=== PATIENT | male | born 1940 | race Caucasian/White ===

== ENCOUNTER 2018-02-18 08:51 | Day surgery (SDC) | payer MEDICARE ==
[~2018-02-18] VITALS: Ht 185.4 cm; Wt 126.4 kg
--- NOTE | ~2018-02-18 | OP ---
PATIENT NAME: MURTAZA REYES JR MEDICAL RECORD: [id number] :40 [facility] DATE: SURGEON: ALEJANDRO SHARP DO DATE OF OPERATION: 02/18/2018 PROCEDURE: Colonoscopy with biopsy. INDICATIONS FOR PROCEDURE: Diverticular disease, periumbilical abdominal pain, chronic constipation. SCOPE: Dhir [employer] video pediatric colonoscope. MEDICATIONS: Propofol 270 mg IV per anesthesia. WITHDRAWAL TIME: 8 minutes. ESTIMATED BLOOD LOSS: Minimal. COMPLICATIONS: None. FINDINGS: Informed consent was given. The patient was made comfortable with the above medication. After reaching an adequate level of sedation by slow IV push, the patient was placed on his left side. A digital rectal examination was performed and revealed an enlarged and firm prostate consistent with prostatic hyperplasia. The endoscope was advanced under direct visualization through the rectum to the cecum. The cecum was confirmed by presence of the appendiceal orifice and ileocecal valve. The endoscope is slowly withdrawn. Mucosa was carefully examined. The prep quality was fair. There was extensive, severe, pandiverticulosis visualized on today's examination. There was no evidence of active diverticulitis. There were no polyps seen on today examination. There was a single area in the ascending colon, which appeared to be a lipoma, but did not have a typical yellow discoloration. The area measured approximately 1.4 cm in size. The tissue was probed with a forceps with indentation noted. A single cold forceps biopsy was taken to confirm that there was no adenomatous tissue present. Retroflexion was performed in the rectum with visualization of grade I internal hemorrhoids without active bleeding. The endoscope was then unretroflexed and withdrawn from the patient. The patient tolerated the procedure well and there were no complications. IMPRESSION: 1. Severe pandiverticulosis without diverticulitis. 2. Ascending colon submucosal lesion that appeared to be a lipoma. A single cold forceps biopsy was taken of the overlying tissue to rule out adenomatous tissue. 3. Grade I internal hemorrhoids without active bleeding. PLAN AND RECOMMENDATIONS: 1. Discharge home when recovery parameters are met. 2. Follow up biopsy specimen results. 3. Continue current medications. 4. High fiber diet. 5. Regarding the patient's constipation, I would recommend continuing MiraLax 1 cap daily and supplementing diet with 1-2 tablespoons of psyllium husk fiber daily. 6. No further colonoscopies based on the patient's age and lack of polyps seen OPERATIVE REPORT [id number] MURTAZA REYES JR on today's examination. TRANSINT:[id number] Voice Confirmation ID: [id number] DOCUMENT ID: [id number] ALEJANDRO SHARP DO at 0934 CC: [id number] DICTATION DATE: 02/18/18 1126 TRUCK FARMER: 02/18/18 1242 [facility] 02/18/18 [id number] [place] [address]
[~2018-02-18 08:51] MED LIST: ALEVE220 MG PO; AUGMENTIN 875-11 TAB PO; BAYER CHEWABLE81 MG PO; CARDURA2 MG PO; FISH OIL 1,0001 CA1 PO; HYDROCHLOROTHIA25 MG PO; LASIX40 MG PO; LIPITOR40 MG PO; NORCO 5/325 TAB1 TA1 PO; PERIDEX480 ML MM; PRINIVIL20 MG PO
[2018-02-18] MEDS ORDERED: BAYER CHEWABLE81 MG PO (09:48)
[2018-02-18] MEDS ORDERED: COREG12.5 MG PO (09:49)
[2018-02-18] MEDS ORDERED: KLOR-CON 88 MEQ PO (09:50)
[2018-02-18 09:59] VITALS: Ht 185.4 cm; Wt 126.4 kg
[2018-02-18 10:27] LABS: HEMATOCRIT 43.6 % (42.0-54.0); HEMOGLOBIN 14.6 g/dL (13.5-17.5); MCH 29.7 pg (26.0-34.0); MCHC 33.5 g/dL (31.0-37.0); MCV 88.6 fL (80.0-100.0); MEAN PLATELET VOLUME 9.6 fL (7.4-10.4); RBC 4.92 10x6/uL (4.20-6.10); RDW 12.6 % (11.5-14.5); WBC 5.1 10x3/uL (4.8-10.8)
== END 2018-02-18 12:20 | disposition home or self-care (01) ==
LOC: D.OPS 08:51
PROVIDERS: Anesthesiology
DX: K59.09 Other constipation (principal); I25.10 Atherosclerotic heart disease of native coronary artery without angina pectoris; I10 Essential (primary) hypertension; I50.9 Heart failure, unspecified; E66.9 Obesity, unspecified; K63.9 Disease of intestine, unspecified; K64.0 First degree hemorrhoids; Z01.812 Encounter for preprocedural laboratory examination

== ENCOUNTER 2018-04-30 17:35 | Inpatient (IN) | payer MEDICARE ==
[~2018-04-30] VITALS: Ht 185.4 cm; Wt 125.6 kg
--- NOTE | ~2018-04-30 | CN ---
PATIENT NAME:MURTAZA AVILA JR MEDICAL RECORD: [id number] : 40 LOCATION:[id number] ADMIT DATE: 04/30/18 ACCOUNT: [id number] CONSULTING PHYSICIAN: TOMI MERCEDES MD REFERRING PHYSICIAN: SHALONDA MELGAR MD DATE OF CONSULTATION: 04/30/2018 SURGERY CONSULTATION CHIEF COMPLAINT: Hernia. HISTORY OF PRESENT ILLNESS: Mr. Avila is a 77-year-old white male who is seen by Dr. Wayne this morning for a tender bulge in the right groin. He says it has been present for about a day, has gotten more tender. When he was seen by Dr. Wayne, attempts were made to reduce, it was felt to be an inguinal hernia, but they were unsuccessful secondary to the pain. Dr. Wayne called me at that point and scheduled to have the patient transferred directly to the hospital for further evaluation and possible surgery. The patient has been resting in the ER waiting room for a floor bed to come open. When I found him, he was sitting in the corner of the ER and at that point I took him back to one of the ER rooms and did an evaluation. He says he denies any nausea or vomiting, but that the pain has been fairly intense in the right groin, especially with manipulation. He has never had a hernia before and has never noticed a bulge in the region. He denies any history of previous hernia repairs. He does have extensive history of coronary artery disease, undergoing PTCA with stenting and also having a CABG performed. He reports taking a baby aspirin a day, but according to Dr. Wayne's notes he is also on Plavix. PAST MEDICAL HISTORY: 1. Coronary artery disease. 2. Hypertension. 3. Sleep apnea. 4. Peripheral vascular disease. PAST SURGICAL HISTORY: 1. Left total knee replacement. 2. CABG. 3. PTCA with stenting. 4. Open cholecystectomy. ALLERGIES: No known drug allergies. MEDICATIONS: Hydrochlorothiazide 25 mg daily, Robaxin 500 mg t.i.d., lisinopril 20 mg b.i.d., Lasix 40 mg daily, Lipitor 40 mg at bedtime, aspirin 81 mg daily, carvedilol 12.5 mg b.i.d., Klor-Con 8 mEq daily, Aleve 220 mg every 12 hours p.r.n. and [place] 3 fish oil 1000 mg daily, and possibly Plavix 75 mg daily. FAMILY HISTORY: Cardiovascular disease and diabetes. SOCIAL HISTORY: He is a former tobacco user and former alcohol user with about a [id number] history. REVIEW OF SYSTEMS: GENERAL: He denies any fevers, chills, fatigue, but he does have weakness. CARDIOVASCULAR: He denies chest pain, palpitations or shortness of breath, but CONSULT REPORT [id number] MURTAZA AVILA JR he does have leg edema. NEUROLOGIC: Denies headache, seizure, strokes, or numbness. No mental status changes. INFECTIOUS DISEASE: No fevers or chills. GASTROINTESTINAL: He denies nausea, vomiting, but he does have right groin pain. Denies diarrhea or constipation. GENITOURINARY: No history of kidney disease, dialysis or dysuria. HEMATOLOGIC: No bleeding or melena. ENDOCRINE: He denies thirst or sweating. PULMONARY: Denies cough, wheezing or pleurisy. MUSCULOSKELETAL: He does have some functional loss in his extremities and has some occasional pain. PHYSICAL EXAMINATION: VITAL SIGNS: He currently does not have any vital signs from our facility. GENERAL: He is an obese male in no apparent distress, but in some pain with limited gait. HEENT: Sclerae is nonicteric. HEART: Regular rate and rhythm with no murmurs. RESPIRATORY: No cough or wheezing. GASTROINTESTINAL: Soft, nontender, nondistended. He does have a right inguinal hernia, which is firm and tender with no overlying skin changes and is not reducible. There is no evidence of a left inguinal hernia. No signs of umbilical hernia. No sign of hepatosplenomegaly. EXTREMITIES: He has bilateral lower extremity edema with stockings in place. He has a healed left knee incision. NEUROLOGICAL: Alert and oriented times 3. SKIN: No rashes or lesions. No jaundice. ASSESSMENT AND PLAN: 1. Incarcerated right inguinal hernia. I made multiple attempts to reduce the hernia in the Emergency Room, which were unsuccessful, so the patient was set up for emergent surgery. The call team for the OR was called in and the patient was given Lovenox and preoperative orders for antibiotics. 2. Coronary artery disease. We will hold Plavix and aspirin. 3. Hypertension. We will continue home lisinopril postoperatively. TRANSINT:[id number] Voice Confirmation ID: [id number] DOCUMENT ID: [id number] TOMI MERCEDES MD at 0801 CC: [id number] DICTATION DATE: 05/01/18 1317 WATER TENDER: 05/01/18 1356 [facility] 05/01/18 [id number] [place] [id number]
--- NOTE | ~2018-04-30 | OP ---
PATIENT NAME: MURTAZA REYES JR MEDICAL RECORD: [id number] :40 LOCATION:[id number] ADMISSION DATE:04/30/18 SURGEON: SYLVAIN MERCEDES MD DATE OF OPERATION: 05/01/2018 PREOPERATIVE DIAGNOSES: 1. Incarcerated right inguinal hernia. 2. Coronary artery disease. 3. Hypertension. POSTOPERATIVE DIAGNOSES: 1. Incarcerated right inguinal hernia. 2. Coronary artery disease. 3. Hypertension. PROCEDURE: Right inguinal hernia repair with a large PHS mesh. SURGEON: Sylvain Mercedes MD REPORT OF PROCEDURE: The patient's right groin was prepped and draped in sterile fashion. An oblique incision was made above the inguinal ligament. Electrocautery was used to dissect through the subcutaneous tissues to the external oblique fascia. This fascia was opened up to the external ring using electrocautery. We immediately could see there was an enlarged hernia sac. This had some what appeared to be fatty contents within it. As we gently started our manipulation, these contents fell quickly into the abdominal cavity. I was eventually able to dissect down to moderate sized cord lipoma and freed up what appeared to be an indirect hernia defect. This hernia sac was kept intact and once it was freed up from the spermatic cord, it was eviscerated back into the abdominal cavity. The preperitoneal space of Retzius was opened up and a large PHS mesh was inserted. This was sutured down on all 4 sides using multiple interrupted 0 Vicryls. Any nerve tissue that was found in the area was treated with high ligation. We then irrigated out the wounds with normal saline and checked to make sure there was no sign of any active bleeding. The external oblique fascia was then closed with running 2-0 Vicryl, Aiden's was closed with interrupted 3-0 Vicryl and the skin was closed with running subcutaneous 5-0 Monocryl. A 10 mL of 0.25% Marcaine with epinephrine was infused into the surrounding tissues and the wound was dressed appropriately. COMPLICATIONS: None. CONDITION: Stable. ANESTHESIA: General endotracheal and local. BLOOD LOSS: Minimal. TRANSINT:[id number] Voice Confirmation ID: [id number] DOCUMENT ID: [id number] OPERATIVE REPORT [id number] MURTAZA REYES JR SYLVAIN MERCEDES MD at 0801 CC: LARA GUZMÁN [id number] DICTATION DATE: 05/01/18 0030 ETL ANALYST: 05/01/18 0109 [facility] 05/01/[address] [facility] [address] [id number]
--- NOTE | ~2018-04-30 | HP ---
PATIENT: MURTAZA AVILA JR MEDICAL RECORD: [id number] ACCOUNT: [id number] LOCATION:[id number] : 40 ADMISSION DATE: 04/30/18 HISTORY AND PHYSICAL EXAMINATION HISTORY: Mr. Avila is a pleasant 77-year-old white male who presents to the office this afternoon with acute onset of right inguinal pain. He was cleaning blackberry sitting at the table, when he developed sudden pain this morning. He has done some recent lifting and pulling about the house. On exam in the office, he has a palpable mass in the right inguinal area that is exquisitely tender with pain. He has felt nauseated but no vomiting. He had a bowel movement earlier today, but not since the pain started. Findings are very suspicious for an incarcerated bowel. I spoke with Dr. Kamara and the patient is going to be a direct admit for further evaluation. PAST MEDICAL HISTORY: Significant for morbid obesity, osteoarthritis, diverticular disease, coronary artery disease, hyperlipidemia, hypertension, bilateral hearing loss, sleep apnea, gout, prediabetes. PAST SURGICAL HISTORY: Previous surgeries and procedures include PTCA, cataract surgery, colonoscopy in February of 2018, cholecystectomy, left knee replacement in 2009, bypass grafting in 1994. ALLERGIES: None known. HOME MEDICATIONS: Include doxazosin half tablet at bedtime, atorvastatin 40 mg a day, ranitidine 150 twice a day, lisinopril 20 a day, clopidogrel 75 mg a day, furosemide 20 a day, Coreg 12.5 twice a day, ProAir p.r.n., stool softener, fish oil, O2 at bedtime and p.r.n., and a baby aspirin. He also takes some oovl-hej-spwypej potassium and MiraLAX. FAMILY HISTORY: Significant for cancer and diabetes. SOCIAL HISTORY: The patient is . His has dementia and he is her primary caregiver. He is a former smoker, quit in 1969. He admits to occasional alcohol use. 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 REVIEW OF SYSTEMS: He denies any fever. Denies any chest pain or shortness of breath. He is extremely hard of hearing. Pain is in the right inguinal area. Nausea. He had a bowel movement this morning prior to onset of pain. No difficulties with urinating. PHYSICAL EXAMINATION: GENERAL: He is in [id number]-si-sylblfzv distress at this time due to pain, morbidly obese, very hard of hearing. HEART: Regular without murmur, rub, or gallop. LUNGS: Clear. ABDOMEN: Soft. He has a palpable mass in the right inguinal ring, which is exquisitely tender and unable to reduce here in the office. NEUROLOGIC: Without any gross focal deficits. IMPRESSION: 1. Incarcerated right inguinal hernia, unable to reduce in the office. 2. Coronary artery disease, stable. HISTORY AND PHYSICAL [id number] MURTAZA AVILA JR 3. Morbid obesity. 4. Hard of hearing. 5. DJD. 6. Hyperlipidemia. 7. Hypertension. 8. Sleep apnea. 9. Morbid obesity. PLAN: 1. Unable to reduce here in the office. 2. Called and discussed with Dr. Kamara. 3. Admit. Instructed to remain n.p.o. IV pain medications. See orders for rest of plan. TRANSINT:[id number] Voice Confirmation ID: [id number] DOCUMENT ID: [id number] LARA GUZMÁN DO at 1133 CC: [id number] DICTATION DATE: 04/30/18 180 ENVIRONMENTAL SYSTEMS COORDINATOR: 04/30/18 1823 ADM IN [facility] [address] [id number]
[~2018-04-30 17:35] MED LIST changes: +COREG12.5 MG PO; +KLOR-CON 88 MEQ PO
[2018-04-30 22:04] LABS: BASOPHILS 0.2 % (0-2); HEMATOCRIT 41.5 % (42.0-54.0); HEMOGLOBIN 13.9 g/dL (13.5-17.5); IMMATURE GRANULOCYTES 0.1 % (0-5); LYMPHOCYTES 19.9 % (15-50); MCH 29.9 pg (26.0-34.0); MCHC 33.5 g/dL (31.0-37.0); MCV 89.2 fL (80.0-100.0); MEAN PLATELET VOLUME 9.3 fL (7.4-10.4); MONOCYTES 9.4 % (2-11); NEUTROPHILS 67.4 % (40-80); PLATELET COUNT 151 10x3/uL (130-400); RBC 4.65 10x6/uL (4.20-6.10); RDW 13.4 % (11.5-14.5); WBC 8.4 10x3/uL (4.8-10.8)
[2018-04-30] MEDS ORDERED: ROBAXIN500 MG PO (22:25)
[2018-04-30 22:55] LABS: ALBUMIN 3.7 g/dL (3.4-5.0); ANION GAP 7.2 mmol/L (8-16); BILIRUBIN - TOTAL 1.52 mg/dL (0.2-1.3); CALCIUM 8.6 mg/dL (8.5-10.1); CARBON DIOXIDE 30.8 mmol/L (21.0-32.0); CREATININE - SERUM 1.2 mg/dL (0.6-1.3); PROTEIN - SERUM 7.2 g/dL (6.4-8.2)
[2018-05-01] VITALS (12 sets, daily range): BP systolic 123–170; BP diastolic 61–93; Ht 185.4 cm; Wt 125.6 kg
[2018-05-01 10:45] LABS: ALBUMIN 3.6 g/dL (3.4-5.0); ALKALINE PHOSPHATASE 112 U/L (46-116); ALT (SGPT) 22 U/L (10-68); BILIRUBIN - TOTAL 1.55 mg/dL (0.2-1.3); CALC OSMOLALITY 284 mosm/kg (275-300); CALCIUM 8.4 mg/dL (8.5-10.1); CARBON DIOXIDE 30.3 mmol/L (21.0-32.0); CHLORIDE - SERUM 102 mmol/L (98-107); GLUCOSE 140 mg/dL (74-106); POTASSIUM - SERUM 4.6 mmol/L (3.5-5.1); PROTEIN - SERUM 6.5 g/dL (6.4-8.2); SODIUM 141 mmol/L (136-145); UREA NITROGEN 18 mg/dL (7-18); eGFR NON AFRICAN AMERICAN 77 mL/min (90-120)
[2018-05-01 10:59] LABS: BASOPHILS 0.1 % (0-2); EOSINOPHILS 0.1 % (0-7); HEMATOCRIT 41.6 % (42.0-54.0); HEMOGLOBIN 13.7 g/dL (13.5-17.5); IMMATURE GRANULOCYTES 0.2 % (0-5); LYMPHOCYTES 5.5 % (15-50); MCH 29.7 pg (26.0-34.0); MCHC 32.9 g/dL (31.0-37.0); MCV 90.2 fL (80.0-100.0); MEAN PLATELET VOLUME 9.8 fL (7.4-10.4); MONOCYTES 6.8 % (2-11); NEUTROPHILS 87.3 % (40-80); PLATELET COUNT 150 10x3/uL (130-400); RBC 4.61 10x6/uL (4.20-6.10); RDW 13.5 % (11.5-14.5)
[2018-05-01 11:02] LABS: WBC 11.9 10x3/uL (4.8-10.8)
[2018-05-01] MEDS ORDERED: HYDROCODON-ACE1 EAC7 PO (14:25)
== END 2018-05-01 15:33 | disposition home or self-care (01) | DRG 352 ==
LOC: D.MS 17:35 → D.EDHOLD 17:35 → D.MS 21:42
PROVIDERS: Family Medicine; Surgery
PROC: 0YU50JZ Supplement Right Inguinal Region with Synthetic Substitute, Open Approach (ICD-10-PCS; principal; 2018-05-01)
DX: K40.30 Unilateral inguinal hernia, with obstruction, without gangrene, not specified as recurrent (principal); M19.90 Unspecified osteoarthritis, unspecified site; I25.10 Atherosclerotic heart disease of native coronary artery without angina pectoris; Z95.1 Presence of aortocoronary bypass graft; E78.5 Hyperlipidemia, unspecified; I10 Essential (primary) hypertension; E66.01 Morbid (severe) obesity due to excess calories; Z68.36 Body mass index [BMI] 36.0-36.9, adult; G47.33 Obstructive sleep apnea (adult) (pediatric); Z87.891 Personal history of nicotine dependence

== ENCOUNTER 2018-05-04 16:34 | Emergency (ER) | payer MEDICARE ==
[~2018-05-04] VITALS: Ht 185.4 cm; Wt 126.4 kg
[~2018-05-04 16:34] MED LIST changes: +HYDROCODON-ACE1 EAC7 PO; +ROBAXIN500 MG PO
[2018-05-04 17:05] VITALS: Ht 185.4 cm; Wt 126.4 kg
[2018-05-04 18:02] VITALS: BP 122/87
== END 2018-05-04 18:03 | disposition home or self-care (01) ==
LOC: D.ER 16:34
DX: K59.00 Constipation, unspecified (principal); I10 Essential (primary) hypertension; I25.10 Atherosclerotic heart disease of native coronary artery without angina pectoris; I73.9 Peripheral vascular disease, unspecified; G47.30 Sleep apnea, unspecified; Z85.828 Personal history of other malignant neoplasm of skin

== ENCOUNTER 2018-11-15 01:28 | Emergency (ER) | payer OTHER ==
[~2018-11-15] VITALS: Ht 185.4 cm; Wt 126.4 kg
[2018-11-15 01:32] VITALS: Ht 185.4 cm; Wt 126.4 kg
[2018-11-15] MEDS ORDERED: ZANTAC300 MG PO (01:34)
[2018-11-15] MEDS ORDERED: PLAVIX75 MG PO (01:35)
[2018-11-15] MEDS ORDERED: CARDURA4 MG PO (01:36)
[2018-11-15] MEDS ORDERED: COLACE100 MG PO (01:36)
[2018-11-15 01:47] LABS: APPEARANCE CLEAR (CLEAR); BILIRUBIN NEGATIVE (NEGATIVE); COLOR YELLOW (YELLOW); GLUCOSE NEGATIVE (NEGATIVE); KETONE NEGATIVE (NEGATIVE); NITRITE NEGATIVE (NEGATIVE); PROTEIN NEGATIVE (NEGATIVE); UROBILINOGEN NORMAL (NORMAL)
[2018-11-15 01:56] LABS: BASOPHILS 0.3 % (0-2); EOSINOPHILS 6.2 % (0-7); HEMATOCRIT 42.9 % (42.0-54.0); IMMATURE GRANULOCYTES 0.2 % (0-5); MCH 29.5 pg (26.0-34.0); MCHC 32.6 g/dL (31.0-37.0); MCV 90.3 fL (80.0-100.0); MEAN PLATELET VOLUME 9.6 fL (7.4-10.4); MONOCYTES 10.7 % (2-11); NEUTROPHILS 62.6 % (40-80); PLATELET COUNT 144 10x3/uL (130-400); RBC 4.75 10x6/uL (4.20-6.10); RDW 13.4 % (11.5-14.5); WBC 6.2 10x3/uL (4.8-10.8)
[2018-11-15 02:11] LABS: ALBUMIN 3.9 g/dL (3.4-5.0); ALKALINE PHOSPHATASE 221 U/L (46-116); ALT (SGPT) 26 U/L (10-68); BILIRUBIN - TOTAL 0.96 mg/dL (0.2-1.3); CALC OSMOLALITY 289 mosm/kg (275-300); CALCIUM 8.8 mg/dL (8.5-10.1); CARBON DIOXIDE 29.9 mmol/L (21.0-32.0); CHLORIDE - SERUM 105 mmol/L (98-107); GLUCOSE 109 mg/dL (74-106); POTASSIUM - SERUM 4.1 mmol/L (3.5-5.1); PROTEIN - SERUM 7.3 g/dL (6.4-8.2); SODIUM 143 mmol/L (136-145); UREA NITROGEN 24 mg/dL (7-18); eGFR NON AFRICAN AMERICAN 77 mL/min (90-120)
[2018-11-15 02:12] LABS: AMYLASE - SERUM 34 U/L (25-115); LIPASE 116 U/L (73-393); TROPONIN-I < 0.017 ng/mL (0.000-0.060)
[2018-11-15] MEDS ORDERED: HYDROCODON-ACE1 EA10 PO (05:46)
[2018-11-15 05:57] VITALS: BP 160/81
== END 2018-11-15 05:57 | disposition home or self-care (01) ==
LOC: D.ER 01:28
PROVIDERS: Family Medicine
DX: S30.0XXA Contusion of lower back and pelvis, initial encounter (principal); X58.XXXA Exposure to other specified factors, initial encounter; Y93.89 Activity, other specified; Y92.019 Unspecified place in single-family (private) house as the place of occurrence of the external cause; M54.5 Low back pain

== ENCOUNTER → 2019-01-31 06:58 | Outpatient (CLI) | payer OTHER ==
[~2019-01-31 06:58] MED LIST changes: +CARDURA4 MG PO; +COLACE100 MG PO; +HYDROCODON-ACE1 EA10 PO; +PLAVIX75 MG PO; +ZANTAC300 MG PO
== END | disposition home or self-care (01) ==
LOC: D.NM 06:58
DX: C61 Malignant neoplasm of prostate (principal)

== ENCOUNTER 2019-02-03 08:00 | Outpatient (CLI) | payer OTHER ==
[2018-11-15 01:32] VITALS: BMI 36.7
[2019-02-03 10:52] LABS: BASOPHILS 0.5 % (0-2); EOSINOPHILS 4.2 % (0-7); HEMATOCRIT 40.6 % (42.0-54.0); HEMOGLOBIN 13.3 g/dL (13.5-17.5); IMMATURE GRANULOCYTES 0.2 % (0-5); LYMPHOCYTES 20.1 % (15-50); MCH 29.6 pg (26.0-34.0); MCHC 32.8 g/dL (31.0-37.0); MCV 90.4 fL (80.0-100.0); MEAN PLATELET VOLUME 8.8 fL (7.4-10.4); MONOCYTES 10.8 % (2-11); NEUTROPHILS 64.2 % (40-80); PLATELET COUNT 148 10x3/uL (130-400); RBC 4.49 10x6/uL (4.20-6.10); RDW 13.4 % (11.5-14.5); WBC 5.9 10x3/uL (4.8-10.8)
[2019-02-03 12:49] LABS: APTT 30.7 SECONDS (22.8-39.4); INR 1.09 (0.85-1.17); PROTIME 13.6 SECONDS (11.6-15.0)
== END 2019-02-03 08:01 | disposition home or self-care (01) ==
LOC: D.OPS 08:00 → D.PAN 02-04 10:30 → D.OPS 02-04 10:30 → D.PAN 02-04 12:15 → EDSTATUS 02-04 12:15 → D.OPS 02-04 12:15
PROVIDERS: Anesthesiology; ATTEND Urology
DX: R97.20 Elevated prostate specific antigen [PSA] (principal)

== ENCOUNTER → 2020-01-27 08:39 | Outpatient (CLI) | payer OTHER ==
[2018-11-15 01:32] VITALS: BMI 36.7
== END | disposition home or self-care (01) ==
LOC: D.HCCARDIO 08:39
PROVIDERS: ATTEND Internal Medicine Cardiovascular Disease
DX: I25.10 Atherosclerotic heart disease of native coronary artery without angina pectoris (principal)

== ENCOUNTER 2020-02-10 11:46 | Outpatient (CLI) | payer OTHER ==
[~2020-02-10] VITALS: Ht 188 cm; Wt 125.5 kg
--- NOTE | ~2020-02-10 | HEMODYNAMI ---
PATIENT:MURTAZA REYES JR MEDICAL RECORD: [id number] : 40 LOCATION:[facility] ADMISSION DATE: 02/10/20 Generatedon:02/11/20208:40 Patient name: MURTAZA REYES Patient #: [id number] SSN: [id number] : 1940 Date of study: 02/10/2020 Page: Of Hemodynamic Procedure Report Patient Data Patient Demographics Procedure consent was obtained First Name: MURTAZA Gender: Male Last Name: AMY Suffix: Patient #: [id number] : 1940 Age: 79 year(s) SSN: [id number] Race: Unknown Additional ID: [id number] Contact details [address]: [address] [place] [address] rd State: [place] City: [place] Zip code: [address] Past Medical History Performed procedures and imaging results Date Procedure Procedure Results Comments Stress testing Positive->Intermediate with SPECT MPI risk Allergies: No known allergies Admission Admission Data Admission Date: 02/10/2020 Admission Time: 11:46 Height (in.): 187 BSA: 3.5 (m2) Height (cm.): 474.98 BMI: 2.53 (kg/m2) Weight (lbs.): 126 Weight (kg.): 57.15 Lab Results Lab Result Date: 02/10/2020 Lab Result Time: 0:00 Biochemistry Name Units Result Min Max BUN mg/dl 44 --(----)-* 7 18 Creatinine mg/dl 2.7 --(----)-* 0.6 1.3 eGFR ml/min 24 *-(----)-- 90 120 NONAFRICAN CBC Name Units Result Min Max Hematocrit % 35.3 *-(----)-- 42 54 Hemoglobin g/dl 11.6 *-(----)-- 13.5 17.5 Procedure Procedure Types Cath Procedure Diagnostic Procedure LHC C w/Coronaries w/Grafts Sedation Charges Moderate Sedation up to 30 minutes PCI Procedure AMI/SVG/LOAD DROPPER PTCA or Stent SVG-BMS/JOÃO Initial Hemochron ACT Test Procedure Description Procedure Date Procedure Date: 02/10/2020 Procedure Start Time: 14:37 Procedure End Time: 15:24 Procedure Staff Name Function Juan Allen MD Performing Physician [place] Tavarez RT Monitor Mona Slaughter RT Scrub Elenita Fregoso RN Nurse Procedure Data Cath Procedure Fluoroscopy Diagnostic fluoroscopy Total fluoroscopy Time: time: 19.5 min 19.5 min Diagnostic fluoroscopy Total fluoroscopy dose: dose: 2226 mGy 2226 mGy Contrast Material Contrast Material Type Amount (ml) Isovue 300 206 Entry Location Entry Primary Successful Side Size Upsize Upsize Entry Closure Succes sful Closure Location (Fr) 1 (Fr) 2 (Fr) Remarks Device Remarks Femoral Right 5 Fr 6 Fr Exoseal artery Short Estimated blood loss: 10 ml Diagnostic catheters Device Type Used For End Catheter Placement MULTIPACK JL 4.0 5Fr Procedure catheter MULTIPACK 3DRC 5Fr Procedure catheter DIAGNOSTIC AR1 MOD 5Fr Procedure catheter ([id number]) MULTIPACK Pigtail 5 Fr Ventriculography catheter Procedure Complications No complications Procedure Medications Medication Administration Route Dosage 0.9% NaCl I.V. 100 ml/hr Oxygen etCO2 Nasal cannula 2 l/min Lidocaine 2% added to field 20 Heparin Flush Bag added to field 2 bags (1000units/500ml NS) Plavix P.O. 300 mg Versed I.V. 2 mg Fentanyl I.V. 50 mcg Fentanyl I.V. 50 mcg Heparin Bolus I.V. 5000 units Integrilin (Bolus I.V. 11.3 ml 2mg/ml) Cardene I.C. 300 mcg Versed I.V. 2 mg Integrilin (Bolus wasted 8.7 ml 2mg/ml) Hemodynamics Rest BSA: 3.5 (m2) HGB: 11.6 (g/dl) O2 Consumption: Estimated: 380.81 (ml/min) O2 Con sumption indexed: Estimated:108.8 (ml/min/m) Heart Rate: 55 (bpm) Pressure Samples Time Site Value (mmHg) Purpose Heart Use Rate(bpm) 14:58 LV 158/10,17 Snapshot 54 Snapshots Pre Cath Intra NCS Post Cath Vital Signs Time Heart Resp SPO2 etCO2 NIBP (mmHg) Rhythm Pain Sedation Rate (ipm) (%) (mmHg) Status Level (bpm) 14:19:21 51 18 98 42.7 162/78(145) SB 0 (11) 10(A) , No pain 14:24:02 45 17 100 44.2 165/80(147) SB 0 (11) 10(A) , No pain 14:28:44 48 13 100 45 156/71(128) SB 0 (11) 10(A) , No pain 14:33:25 52 13 100 40.5 133/73(111) SB 0 (11) 10(A) , No pain 14:37:49 53 14 99 44.9 136/87(118) SB 0 (11) 10(A) , No pain 14:42:17 55 14 99 51.7 141/72(124) SB 0 (11) 10(A) , No pain 14:46:54 55 15 96 50.2 146/70(123) SB 0 (11) 10(A) , No pain 14:51:32 55 12 99 44.2 152/65(114) SB 0 (11) 10(A) , No pain 14:56:11 54 15 100 45.7 163/77(129) SB 0 (11) 10(A) , No pain 15:00:56 54 15 100 48.7 168/79(141) SB 0 (11) 10(A) , No pain 15:05:55 57 18 100 38.2 Measuring SB 0 (11) 10(A) , No pain 15:06:36 57 19 100 35.2 148/76(124) SB 0 (11) 10(A) , No pain 15:11:35 58 17 100 44.9 Measuring SB 0 (11) 10(A) , No pain 15:12:36 57 20 100 46.4 150/81(125) SB 0 (11) 10(A) , No pain 15:17:13 56 10 99 44.9 160/79(129) SB 0 (11) 10(A) , No pain 15:21:53 55 15 100 47.9 156/84(138) SB 0 (11) 10(A) , No pain Medications Time Medication Route Dose Verified Delivered Reason Notes Effectiveness by by 14:17:53 0.9% NaCl I.V. 100 Juan Kwong used for ml/hr St Sonu Fregoso procedure MD RN 14:18:01 Oxygen etCO2 2 Juan Kwong used for Nasal l/min [facility] procedure cannula MD VAZQUEZ 14:18:06 Lidocaine 2% added 20ml Juan Martinez for local to vial [facility] anesthetic field MD BATISTA 14:18:09 Heparin Flush added 2 Juan Martinez used for Bag to bags [facility] procedure (1000units/500ml field MD BATISTA NS) 14:20:15 Plavix P.O. 300 Juan Coffmana for mg [facility] Sonu Fregoso antiplatelet MD VAZQUEZ therapy 14:31:35 Versed I.V. 2 mg Juan Elenita for sedation St Sonu Fregoso MD, RN 14:31:43 Fentanyl I.V. 50 Juan Elenita for sedation mcg St Sonu Fregoso MD, RN 14:35:12 Fentanyl I.V. 50 Juan Elenita for sedation mcg St Sonu Fregoso MD, RN 15:05:00 Heparin Bolus I.V. 5000 Juan Elenita for units St Sonu Fregoso anticoagulation MD VAZQUEZ 15:05:09 Integrilin I.V. 11.3 Juan Elenita for (Bolus 2mg/ml) ml St Sonu Fregoso antiplatelet RN therapy 15:05:27 Cardene I.C. 300 Juan Martinez for mcg [place] [facility] Sonu hamlin MD, MD 15:05:33 Versed I.V. 2 mg Juan Elenita for sedation St Sonu Fregoso MD, RN 15:21:11 Integrilin wasted 8.7 Juan Elenita for (Bolus 2mg/ml) ml St Sonu Fregoso antiplatelet RN therapy Procedure Log Time Note 12:57:02 Informed consent obtained and on chart 12:57:21 Time tracking: Regular hours (M-F 7:00 - 5:00) 12:57:25 Plan of Care:Hemodynamics will remain stable., Cardiac rhythm will remain stable., Comfort level will be maintained., Respiratory function will remain adequate., Patient/ family verbilizes understanding of procedure., Procedure tolerated without complication., Recovers from procedure without complications.. 13:20:13 Procedure Status Elective Heart Cath (OP). 13:22:12 Procedure type changed to Cath procedure, Diagnostic procedure, LHC, LHC w/Coronaries w/Grafts, Sedation Charges, Moderate Sedation up to 30 minutes, PCI procedure, AMI/SVG/LOAD DROPPER PTCA or Stent, SVG-BMS/JOÃO Initial, Hemochron ACT Test 13:24:20 Patient Weight : 126 lbs 13:24:25 Patient Height : 187 inches 13:25:35 Lab Result : Hemoglobin 11.6 g/dl 13::35 Lab Result : Hematocrit 35.3 % 13:25:35 Lab Result : eGFR NONAFRICAN 24 ml/min 13:25:35 Lab Result : BUN 44 mg/dl 13:25:35 Lab Result : Creatinine 2.7 mg/dl 13:50:24 H&P Date Dictated: 01/15/2020 Within 30 days and on chart., H&P Addendum completed by physician on day of procedure. (MUST COMPLETE FOR ALL OUTPATIENTS). 13:50:30 Patient allergic to No known allergies 13:58:44 Mona PUCKETT(R) (CV) sent for patient. Start room use. 14:07:59 Patient received from Pre/Post Procedure Room to CCL 1 Alert and oriented. Tansferred to table in Supine position. 14:08:01 ECG and BP/O2 sat monitors applied to patient. 14:08:01 Correct patient and procedure confirmed by team. 14:08:01 Warm blankets applied, and curly hugger turned on for patient comfort. 14:17:44 Vital chart was started 14:17:53 0.9% NaCl 100 ml/hr I.V. was administered by Elenita Fregoso RN; used for procedure; Verbal order read back and verified. 14:18:01 Oxygen 2 l/min etCO2 Nasal cannula was administered by Elenita Fregoso RN; used for procedure; Verbal order read back and verified. 14:18:06 Lidocaine 2% 20ml vial added to field was administered by Juan Allen MD; for local anesthetic; Verbal order read back and verified. 14:18:09 Heparin Flush Bag (1000units/500ml NS) 2 bags added to field was administered by Juan Allen MD; used for procedure; Verbal order read back and verified. 14:19:44 Baseline sample Acquired. 14:19:48 Full Disclosure recording started 14:19:59 Is the patient allergic to Iodine/contrast media? No. 14:20:03 Was the patient premedicated? Yes 14:20:04 Is patient on blood thinner?Yes 14:20:10 ACC The patient was administered the following blood thiners within the last 24 hours: ACCPlavix 14:20:13 Patient diabetic? No. 14:20:15 Plavix 300 mg P.O. was administered by Elenita Fregoso RN; for antiplatelet therapy; Verbal order read back and verified. 14:20:19 Snore? Yes 14:20:21 Sleep apnea? Yes 14:20:48 Patient pain scale 0/10 ?. 14:20:54 IV patent on arrival in left forearm with 0.9% NaCl at [facility]. 14:21:00 Lab results completed and on chart. 14:21:49 Stress Test: yes; abnormal inferior 14:21:54 Right groin area was prepped with chlora-prep and draped in sterile fashion 14::55 Alarms reviewed by R. N. 14:21:56 Sharps counted by scrub and verified by R.N. 14:30:58 Physician arrived 14:30:59 Final Timeout: patient, procedure, and site verified with staff and physician. All members of the team are in agreement. 14:30:59 --------ALL STOP TIME OUT------ 14:31:02 Right groin site verified by team. 14:31:07 Fire Safety Assessment: A--An alcohol-based skin anteseptic being used preoperatively., C--Open oxygen or nitrous oxide is being used., D--An ESU, laser, or fiber-optic light is being used. 14:31:19 Physical assessment completed. ASA score P 3 - A patient with severe systemic disease as per Juan Allen MD. 14:31:24 4) 15-29 Severley reduced kidney function. 14:31:28 Maximum allowable contrast dose (3.7 X eGFR X 0.75)67 ml. 14:31:32 Sedation plan: IV Moderate Sedation Medication:Versed, Fentanyl 14:31:35 Versed 2 mg I.V. was administered by Elenita Fregoso RN; for sedation; Verbal order read back and verified. 14::38 Zero performed for pressure channel P1 14:31:43 Fentanyl 50 mcg I.V. was administered by Elenita Fregoso RN; for sedation; Verbal order read back and verified. 14:35:12 Fentanyl 50 mcg I.V. was administered by Elenita Ildefonso RN; for sedation; Verbal order read back and verified. 14:37:00 Procedure started. 14:37:09 Local anesthetic to right femoral artery with Lidocaine 2% by Juan Allen MD.INITIAL ACCESS ONLY 14:37:19 A 5 Fr sheath was inserted into the Right Femoral artery 14:37:46 J wire advanced. 14:37:57 Use device set Femoral Dx 14:37:59 Bag Decanter (2002S) opened to sterile field. 14:37:59 ACIST Syringe (17076) opened to sterile field. 14:38:00 Medline Cath Pack ([id number]) opened to sterile field. 14:38:01 ACIST Hand Control (44616) opened to sterile field. 14:38:02 DIAGNOSTIC Multipack 5Fr catheter set ([id number]) opened to sterile field. 14:38:02 ACIST Manifold (68193) opened to sterile field. 14:38:03 Tegaderm 4 x 4 (1626W) opened to sterile field. 14:38:04 EXOSEAL 5Fr (EX500) opened to sterile field. 14:38:05 SHEATH 5FR [place] (XAA438) opened to sterile field. 14:38:06 EMERALD Guide Wire (479-570) opened to sterile field. 14:39:13 A MULTIPACK JL 4.0 5Fr catheter was advanced over the wire and used for Procedure. 14:39:20 LCA angiography performed. 14:40:21 Catheter removed. 14:40:29 A MULTIPACK 3DRC 5Fr catheter was advanced over the wire and used for Procedure. 14:41:12 RCA angiography performed. 14:42:13 SVG to Circ angiography performed. 14:45:46 WHOLEY 300cm 0.035 wire ([id number]) opened to sterile field. 14:48:14 j wire exchanged for wholly to access LARSON 14:48:44 wholly exchanged for glidewire 14:49:08 GLIDE WIRE Super Stiff Angled 260cm (LM6069) opened to sterile field. 14:53:08 LARSON to LAD angiography performed. 14:53:50 Catheter removed. 14:54:01 A DIAGNOSTIC AR1 MOD 5Fr catheter ([id number]) was advanced over the wire and used for Procedure. 14:55:46 SVG to RCA angiography performed. 14:56:50 Catheter removed. 14:56:59 A MULTIPACK Pigtail 5 Fr catheter was advanced over the wire and used for Ventriculography. 14:57:53 LV gram done using DOTSON 14:58:27 EF : 55 % 14:59:20 INFLATOR Merit BasixCompak (TK8190) opened to sterile field. 14:59:20 SHEATH 6FR [place] (SWA787) opened to sterile field. 14:59:21 WHISPER 300cm guide wire ([id number]) opened to sterile field. 14:59:26 Proceeding to intervention. 14:59:35 Sheath upsized to a 6 Fr Short. 15:00:30 6 Fr AR1 guide catheter was inserted over the wire 15:00:39 GUIDE 6FR AR 1.0 catheter ([id number]) opened to sterile field. 15:00:55 Whisper wire advanced. 15:05:00 Heparin Bolus 5000 units I.V. was administered by Elenita Fregoso RN; for anticoagulation; Verbal order read back and verified. 15:05:09 Integrilin (Bolus 2mg/ml) 11.3 ml I.V. was administered by Elenita Fregoso RN; for antiplatelet therapy; Verbal order read back and verified. 15:05:20 Wire advanced across lesion. 15:05:27 Cardene 300 mcg I.C. was administered by Juan Allen MD; for vasodilation; Verbal order read back and verified. 15:05:33 Versed 2 mg I.V. was administered by Elenita Fregoso RN; for sedation; Verbal order read back and verified. 15:08:44 Inflate balloon Inflation number: 1 A EMERGE OTW 4.0 x 15 balloon ([id number]) was prepped and advanced across the Aorta Right -> Prox RCA 90, then inflated to 16 [place] for 0:45 (min:sec) . 15:14:34 Balloon removed over the wire. 15:15:41 Place stent Inflation Number: 1 A INTEGRITY RX 4.0 x 30 stent ([id number]) was prepped and advanced across the Undefined2 80. The stent was deployed at 14 [place] for 0:15 (min:sec) 0. 15:16:03 Stent catheter was removed intact over wire. 15:19:18 Place stent Inflation Number: 2 A INTEGRITY RX 4.0 x 12 stent ([id number]) was prepped and advanced across the Aorta Right -> Prox RCA 80. The stent was deployed at 14 [place] for 0:21 (min:sec) . 15:20:14 Wire removed. 15:20:15 Guide catheter removed. 15:20:39 EXOSEAL 6Fr (EX600) opened to sterile field. 15:21:11 Integrilin (Bolus 2mg/ml) 8.7 ml wasted was administered by Elenita Fregoso RN; for antiplatelet therapy; Verbal order read back and verified. 15:21:13 Sheath removed intact; hemostasis achieved with Exoseal to the Right Femoral artery. 15:21:15 Procedure ended.(Physican Out) 15:21:29 Fluoroscopy time 19.50 minutes. 15::34 Fluoroscopy dose: 2226 mGy 15::34 Flurop Dose total: 2226 15:21:41 Dose Area Product 374820 mGy/cm. 15:21:47 Contrast amount:Isovue 300 206ml. 15:21:49 Maximum allowable dose exceeded? Yes. 15:21:53 Insertion/operative site no bleeding no hematoma. 15:21:56 Post Procedure Pulses reassessed and unchanged 15:22:00 Post-procedure physical assessment completed. ASA score P 3 - A patient with severe systemic disease as per Juan Allen MD. 15:22:06 Post procedure rhythm: unchanged. 15:22:09 Estimated blood loss: 10 ml 15:22:11 Post procedure instruction explained to patient.Patient verbalizes understanding. 15:23:03 Procedure and supply charges have been captured, reviewed, submitted and are correct. 15:24:05 Procedure Complication : No complications 15:24:36 Vital chart was stopped 15:24:40 [facility] Findings: MVD- PCI performed (see procedure note) 15:24:42 Operative report dictated upon procedure completion. 15:24:43 See physician's report for complete and final results. 15:24:46 Report given to Pre/Post Procedure Room. 15:24:51 Patient transfered to Pre/Post Procedure Room with Stretcher. 15:24:54 Full Disclosure recording stopped 15:24:54 Procedure ended. 15:25:00 End room use (Document Last) 8:39:31 Late Entry: ACT result 195 Intervention Summary Intervention Notes Time ActionType Lesion and Equipment Action# Pressure Duration Attributes Used 15:08:44 Inflate Aorta Right EMERGE OTW 1 16 00:45 balloon -> Prox RCA 4.0 x 15 balloon ([id number]) 15:15:41 Place stent Undefined2 INTEGRITY RX 1 14 00:15 4.0 x 30 stent ([id number]) 15:19:18 Place stent Aorta Right INTEGRITY RX 2 14 00:21 -> Prox RCA 4.0 x 12 stent ([id number]) Device Usage Item Name Manufacture Quantity Catalog Number Hospital Part Current Min imal Lot# / Charge Number Stock Stock Serial# Code ACIST Acist 1 18618 114284 179233 768652 20 Syringe Medical (32823) Systems Inc Bag Decanter Microtek 1 2001S 059082 45190 649361 5 (2001S) Medical Inc. Medline Cath Medline 1 [id number] 875630 39773 899591 5 Pack ([id number]) ACIST Hand Acist 1 52002 553748 379230 909906 5 Control Medical (62477) Systems Inc ACIST Acist 1 32635 693395 110126 658342 5 Manifold Medical (39706) Systems Inc DIAGNOSTIC Cardinal 1 BR1911 248196 01532 620428 30 Multipack Health 5Fr catheter set (XO2579) Tegaderm 4 x 3M 1 1626W 537673 328929 083919 5 4 (1626W) EXOSEAL 5Fr Cardinal 1 EX500 911233 505298 085204 10 (EX500) Health SHEATH 5FR Terumo 1 VVJ305 857525 418630 031163 5 [place] (FIL958) EMERALD Cardinal 1 502-455 754121 683755 507588 5 Guide Wire [facility] (502455) MULTIPACK JL Cardinal 1 630823 5 4.0 5Fr Health catheter MULTIPACK Cardinal 1 516038 5 3DRC 5Fr Health catheter WHOLEY 300cm Medtronic 1 [id number] 327583 569030 033255 3 0.035 wire ([id number]) GLIDE WIRE Terumo 1 JP3240 150430 702472 954191 5 Super Stiff Angled 260cm (HK9700) DIAGNOSTIC Cardinal 1 [id number] 986746 015000 013873 15 AR1 MOD 5Fr Health catheter ([id number]) MULTIPACK Cardinal 1 971230 5 Pigtail 5 Fr Health catheter SHEATH 6FR Terumo 1 REF470 899480 213381 524942 40 [place] (WVN794) INFLATOR Merit 1 AI3775 197626 775683 328618 15 [facility] Medical BasixCompak (VT5864) WHISPER López 1 [id number] 847158 922169 347362 5 300cm guide Vascular wire ([id number]) GUIDE 6FR AR Medtronic 1 FB6HM76 326330 27045 835544 1 1.0 catheter (YK8PH63) EMERGE OTW Stanley 1 [id number] 919401 363201 240723 5 [id number] 4.0 x 15 Scientific balloon ([id number]) INTEGRITY RX Medtronic 1 [id number] 909782 042785 794474 5 [id number] 4.0 x 30 stent ([id number]) INTEGRITY RX Medtronic 1 [id number] 424553 877273 667153 5 [id number] 4.0 x 12 stent ([id number]) EXOSEAL 6Fr Cardinal 1 EX600 581868 908288 854749 10 (EX600) Health Signature Audit [place] Stage Time Signature Unsigned Intra-Procedure 02/10/2020 [place] Tavarez 3:26:06 PM RT(R) Intra-Procedure 02/10/2020 Elenita Fregoso 3:26:35 PM RN Intra-Procedure 02/10/2020 Juan Allen MD 3:26:59 PM Sonu BATISTA 02/11/2020 8:39:14 AM Intra-Procedure 02/11/2020 Elenita Fregoso 8:39:45 AM RN Intra-Procedure 02/11/2020 Juan Ramesh 8:40:07 AM Sonu BATISTA Signatures Performing Physician : Signature : Juan Allen MD Date : Time : Monitor : [place] Tavarez Signature : RT Date : Time : Nurse : Elenita Fregoso RN Signature : Date : Time : [place] [id number] [place] [address]
[2020-02-10] MEDS ORDERED: POTASSIUM99 M1 PO (12:27)
[2020-02-10] MEDS ORDERED: ULTRAM50 MG PO (12:28)
[2020-02-10] MEDS ORDERED: PROTONIX40 MG PO (12:28)
[2020-02-10] MEDS ORDERED: ZANAFLEX4 MG PO (12:29)
[2020-02-10] MEDS ORDERED: KEFLEX500 MG PO (12:29)
[2020-02-10] MEDS ORDERED: METOLAZONE5 MG PO (12:30)
[2020-02-10 12:34] VITALS: BP 164/110; Ht 188 cm; Wt 125.5 kg
[2020-02-10 12:45] LABS: BASOPHILS 0.3 % (0-2); EOSINOPHILS 2.9 % (0-7); HEMATOCRIT 35.3 % (42.0-54.0); HEMOGLOBIN 11.6 g/dL (13.5-17.5); IMMATURE GRANULOCYTES 0.1 % (0-5); LYMPHOCYTES 20.2 % (15-50); MCH 29.7 pg (26.0-34.0); MCHC 32.9 g/dL (31.0-37.0); MCV 90.3 fL (80.0-100.0); MEAN PLATELET VOLUME 8.7 fL (7.4-10.4); MONOCYTES 9.4 % (2-11); NEUTROPHILS 67.1 % (40-80); RBC 3.91 10x6/uL (4.20-6.10); RDW 12.8 % (11.5-14.5); WBC 7.5 10x3/uL (4.8-10.8)
[2020-02-10 12:48] LABS: PLATELET COUNT 193 10x3/uL (130-400)
[2020-02-10 13:00] LABS: ANION GAP 10.1 mmol/L (8-16); CALCIUM 9.5 mg/dL (8.5-10.1); CHOL - HDL RATIO 4.8 ratio (2.3-4.9); CREATININE - SERUM 2.7 mg/dL (0.6-1.3); POTASSIUM - SERUM 3.1 mmol/L (3.5-5.1)
--- NOTE | 2020-02-10 15:37 | NUR ---
PT ARRIVED BY STRETCHER. PLACED ON MONITORS. ASSESSMENT COMPLETED. VSS. CALL LIGHT WITHIN REACH.
--- NOTE | 2020-02-10 15:50 | NUR ---
RIGHT GROIN DRESSING C/D/I. NO S/S OF HEMATOMA NOTED. PT DENIES NAUSEA. TOLERATING SIPS OF SODA AT THIS TIME. VSS. CALL LIGHT WITHIN REACH.
--- NOTE | 2020-02-10 16:14 | NUR ---
PT VOIDED 225cc OF CLEAR YELLOW URINE IN URINAL WITHOUT DIFFICULTY. VSS. RIGHT GROIN DRESSING C/D/I. NO S/S OF HEMATOMA NOTED. CALL LIGHT WITHIN REACH.
--- NOTE | 2020-02-10 16:45 | NUR ---
RIGHT GROIN DRESSING C/D/I. NO S/S OF HEMATOMA NOTED. CALL LIGHT WITHIN REACH. VSS AT THIS TIME. PT RESTING COMFORTABLY.
--- NOTE | 2020-02-10 17:15 | NUR ---
RIGHT GROIN DRESSING C/D/I. NO S/S OF HEMATOMA NOTED. CALL LIGHT WITHIN REACH. VSS. NO NEEDS AT THIS TIME.
--- NOTE | 2020-02-10 18:02 | NUR ---
RIGHT GROIN DRESSING C/D/I. NO S/S OF HEMATOMA NOTED. CALL LIGHT WITHIN REACH. VSS. HEAD OF BED INC TO 30 DEGREES. TOLERATED WELL. SET UP WITH SANDWICH TRAY AND DRINK. DENIES NAUSEA AT THIS TIME.
--- NOTE | 2020-02-10 18:37 | NUR ---
RIGHT GROIN DRESSING C/D/I. NO S/S OF HEMATOMA NOTED. VSS. CALL LIGHT WITHIN REACH. PT'S O2 SAT 94% ON ROOM AIR. NO NEEDS AT THIS TIME.
--- NOTE | 2020-02-10 19:01 | NUR ---
RIGHT GROIN DRESSING C/D/I. NO S/S OF HEMATOMA NOTED. PIV D/C'D WITH CATH TIP INTACT. PT TOLERATED WELL. INSTRUCTED TO GET UP AND DRESSED AT THIS TIME. NO ASSISTANCE NEEDED. CALL LIGHT WITHIN REACH.
--- NOTE | 2020-02-10 19:20 | NUR ---
PT AMBULATED TO RESTROOM. VOIDED WITHOUT DIFFICULTY. STEADY GAIT NOTED. DISCUSSED DISHCARGE INSTRUCTIONS WITH PT. HE VOICED UNDERSTANDING. RIGHT GROIN DRESSING C/D/I. NO S/S OF HEMATOMA NOTED.
--- NOTE | 2020-02-10 19:30 | NUR ---
PT TAKEN DOWN TO VEHICLE BY WHEELCHAIR. NO S/S OF DISTRESS NOTED. ALL BELONGINGS AND PAPERWORK IN HAND. DISCUSSED DISCHARGE INSTRUCTIONS WITH PT'S SON. HE VOICED UNDERSTANDING.
--- NOTE | 2020-02-11 08:16 | OP ---
PATIENT NAME: MURTAZA REYES JR MEDICAL RECORD: [id number] :40 LOCATION:D.CAT ADMISSION DATE: SURGEON: DELTA LEAL MD DATE OF OPERATION: 02/10/2020 PROCEDURE: Left heart catheterization, selective coronary angiography, right femoral artery approach. CATHETERS: A 5-Maltese sheath, 5/4 left and right Bart, 5/4 pig. The procedure was well tolerated. The patient returned to the vargas. Sheath removed. ExoSeal device placed. FINDINGS: Left ventriculography in 30-degree DOTSON view: Normal wall motion and normal systolic function, EF greater than or equal to 55%. CORONARY ANATOMY: LEFT MAIN: Fills for a short period of time. LAD: LAD is totally occluded and is seen filling via competitive flow. CIRCUMFLEX: Totally occluded. RIGHT CORONARY: Totally occluded. BYPASS GRAFTS: 1. LARSON to LAD is widely patent throughout its course with no evidence of post-anastomotic stenosis. 2. Saphenous vein graft, this is a skip graft to circ and OM. This is widely patent. The area of previous stenting is widely patent. 3. Saphenous vein graft to the right. This has ostial stenosis of 90% then diffuse 80% stenosis. PLAN: Intervention of this vessel momentarily. DESCRIPTION OF PROCEDURE: A 5-Maltese sheath was exchanged for a 6-Maltese sheath, an AR2 guiding catheter provided good guide catheter support followed by 300 cm Whisper wire. Pre-deployment balloon was a 15 x 4.0 Edmonson balloon up to 10 atmospheres pre-deployment. Next, stents deployed were a 4.0 x 30 and 4.0 x 12; both Integrity nondrug eluting stents to cover the entire area including the 90% ostial stenosis. Final angiography shows excellent resolution of the ostial stenosis of 90%, diffuse 80% stenosis, no significant residual. NAREN flow was 3 throughout the procedure. Heparin and Integrilin was used during the case. Additional we used Cardene pre-deployment. Sheath closed with ExoSeal device. TRANSINT:[id number] Voice Confirmation ID: [id number] DOCUMENT ID: [id number] DELTA LEAL MD at 0816 CC: [id number] DICTATION DATE: 02/10/20 1533 BODY DIE MAKER: 02/10/20 2148 DEP CLI 02/10/20 [facility] [address] [place] [address]
== END 2020-02-10 19:30 | disposition home or self-care (01) ==
LOC: D.CATH 11:46
PROVIDERS: ATTEND Internal Medicine Interventional Cardiology
DX: I25.119 Atherosclerotic heart disease of native coronary artery with unspecified angina pectoris (principal); R94.30 Abnormal result of cardiovascular function study, unspecified

== ENCOUNTER 2020-03-02 10:03 | Inpatient (IN) | payer OTHER ==
[~2020-03-02] VITALS: Ht 188 cm; Wt 126.1 kg
[~2020-03-02 10:03] MED LIST changes: +KEFLEX500 MG PO; +METOLAZONE5 MG PO; +POTASSIUM99 M1 PO; +PROTONIX40 MG PO; +ULTRAM50 MG PO; +ZANAFLEX4 MG PO
[2020-03-02 10:43] LABS: BASOPHILS 0.3 % (0-2); EOSINOPHILS 3.2 % (0-7); HEMATOCRIT 32.1 % (42.0-54.0); HEMOGLOBIN 10.6 g/dL (13.5-17.5); LYMPHOCYTES 18.1 % (15-50); MCH 29.9 pg (26.0-34.0); MCV 90.4 fL (80.0-100.0); MEAN PLATELET VOLUME 8.4 fL (7.4-10.4); MONOCYTES 8.5 % (2-11); NEUTROPHILS 69.9 % (40-80); PLATELET COUNT 159 10x3/uL (130-400); RBC 3.55 10x6/uL (4.20-6.10); RDW 12.8 % (11.5-14.5); WBC 6.6 10x3/uL (4.8-10.8)
[2020-03-02 10:50] LABS: APTT 30.8 SECONDS (22.8-39.4); INR 1.02 (0.85-1.17); PROTIME 13.3 SECONDS (11.6-15.0)
[2020-03-02 10:52] LABS: CALC OSMOLALITY 285 mosm/kg (275-300); CALCIUM 9.6 mg/dL (8.5-10.1); CARBON DIOXIDE 33.2 mmol/L (21.0-32.0); CHLORIDE - SERUM 98 mmol/L (98-107); CREATININE - SERUM 2.7 mg/dL (0.6-1.3); GLUCOSE 103 mg/dL (74-106); POTASSIUM - SERUM 3.7 mmol/L (3.5-5.1); SODIUM 136 mmol/L (136-145); UREA NITROGEN 52 mg/dL (7-18); eGFR NON AFRICAN AMERICAN 24 mL/min (90-120)
[2020-03-02 11:04] LABS: ALBUMIN 3.7 g/dL (3.4-5.0); ALKALINE PHOSPHATASE 86 U/L (30-120); ALT (SGPT) 18 U/L (10-68); BILIRUBIN - TOTAL 0.88 mg/dL (0.2-1.3); CKMB 1.7 U/L (0.0-3.6); CREATINE KINASE 115 UL (21-232); MAGNESIUM - SERUM 2.3 mg/dL (1.8-2.4); PROTEIN - SERUM 7.9 g/dL (6.4-8.2); TROPONIN-I < 0.017 ng/mL (0.000-0.060)
--- NOTE | 2020-03-02 12:16 | NUR ---
RECIVED FROM ER PER WC TO ROOM 2122 ADMIT ASSESSMENT PER RN
[2020-03-02 13:14] VITALS: BP 126/48; BMI 35.7
[2020-03-02 16:06] LABS: MAGNESIUM - SERUM 2.2 mg/dL (1.8-2.4); THYROID STIMULATING HORMONE 5.67 uIU/mL (0.36-3.74)
--- NOTE | 2020-03-02 17:07 | NUR ---
WITHOUT CHANGES OR DISTRESS NOTED AT THIS TIME. SON AT SIDE. DENIES NEEDS
[2020-03-02 17:47] VITALS: BP 116/73
[2020-03-02 20:00] VITALS: BP 107/58
[2020-03-03] VITALS: BP 119/63
--- NOTE | 2020-03-03 02:39 | NUR ---
I have reviewed this patient and I concur with the Shift Assessment completed by the Licensed Practical Nurse today this shift.
[2020-03-03 04:00] VITALS: BP 126/68
[2020-03-03 06:29] LABS: BASOPHILS 0.4 % (0-2); EOSINOPHILS 3.4 % (0-7); HEMATOCRIT 33.2 % (42.0-54.0); IMMATURE GRANULOCYTES 0.1 % (0-5); LYMPHOCYTES 15.4 % (15-50); MCH 30.1 pg (26.0-34.0); MCHC 33.1 g/dL (31.0-37.0); MCV 90.7 fL (80.0-100.0); MEAN PLATELET VOLUME 8.9 fL (7.4-10.4); MONOCYTES 9.1 % (2-11); NEUTROPHILS 71.6 % (40-80); PLATELET COUNT 183 10x3/uL (130-400); RBC 3.66 10x6/uL (4.20-6.10); RDW 12.8 % (11.5-14.5); WBC 7.1 10x3/uL (4.8-10.8)
[2020-03-03 07:03] LABS: % SATURATION 26 % (15-55); IRON 70 ug/dl (35-150); TOTAL IRON BIND CAPACITY 260 ug/dl (260-445); UNSAT IRON BIND CAPACITY 190 ug/dl (150-375)
[2020-03-03 07:38] LABS: ALBUMIN 3.7 g/dL (3.4-5.0); ANION GAP 10.1 mmol/L (8-16); BILIRUBIN - DIRECT 0.12 mg/dL (0.00-0.30); BILIRUBIN - TOTAL 0.74 mg/dL (0.2-1.3); CALCIUM 9.3 mg/dL (8.5-10.1); CARBON DIOXIDE 32.4 mmol/L (21.0-32.0); CREATININE - SERUM 2.4 mg/dL (0.6-1.3); POTASSIUM - SERUM 3.5 mmol/L (3.5-5.1)
[2020-03-03 09:25] VITALS: BP 114/58
--- NOTE | 2020-03-03 11:57 | NUR ---
URINE AND STOOL SAMPLE COLLECTED AND TAKEN TO LAB. WILL MONITOR.
[2020-03-03 12:22] VITALS: BMI 35.7
[2020-03-03 13:15] VITALS: BP 145/85
[2020-03-03 13:31] LABS: BILIRUBIN NEGATIVE (NEGATIVE); GLUCOSE NEGATIVE (NEGATIVE); KETONE NEGATIVE (NEGATIVE); NITRITE NEGATIVE (NEGATIVE); UROBILINOGEN NORMAL (NORMAL)
[2020-03-03 13:32] LABS: RED CELLS - URINE 0-5 /hpf (0-5)
[2020-03-03 13:33] LABS: BACTERIA FEW /hpf (NEGATIVE); EPITHELIAL CELLS NSEEN /hpf (0-5); WHITE CELLS - URINE 0-5 /hpf (NEGATIVE)
[2020-03-03 16:19] VITALS: Ht 188 cm; Wt 126.1 kg
[2020-03-03 17:26] VITALS: BP 134/66
[2020-03-03 18:14] LABS: CREATININE - URINE 69.4 mg/dL (30-125); PRO/CRE RATIO URINE 1.2 mg/g; PROTEIN - URINE 85.3 mg/dL (0.0-11.9)
[2020-03-03 18:16] LABS: ERYTHROCYTE SEDIMENTATION RATE 45 mm/hr (0-20)
[2020-03-03 20:00] VITALS: BP 133/49
[2020-03-04] VITALS: BP 131/55
--- NOTE | 2020-03-04 00:54 | NUR ---
RESTING WITH EYES CLOSED, RESPERATIONS EVEN, NO S/S DISTRESS NOTED.
[2020-03-04 04:00] VITALS: BP 124/57
--- NOTE | 2020-03-04 07:10 | NUR ---
REPORT RECIEVED FROM PILING SETTER AND PATIENT CARE ASSUMED. PATIENT SITTING UP IN BED AWAKE, ALERT AND ORIENTED X 4. PATIENT IS STABLE AND VSS . PATIENT DENIES ANY NEEDS OR PAIN. WILL CONTINUE WITH PLAN OF CARE.
--- NOTE | 2020-03-04 08:17 | CN ---
PATIENT NAME:MURTAZA REYES JR MEDICAL RECORD: [id number] : 40 LOCATION:D. D.2122 ADMIT DATE: 03/02/20 ACCOUNT: [id number] CONSULTING PHYSICIAN: DELTA LEAL MD REFERRING PHYSICIAN: JAMES LEOS MD DATE OF CONSULTATION: 03/02/2020 HISTORY OF PRESENT ILLNESS: A 79-year-old gentleman with known history of coronary artery disease, status post previous stenting of saphenous vein graft to the right approximately 2 weeks ago. His son reports he has been paying more active since then with increased exercise tolerance. Over the past 2-3 days has been having problems with dizziness, lightheaded, was found to be bradycardic with heart rate of 51 as well as relatively hypotension with systolics in the 90s. He was admitted. We are asked to see him concerning his cardiovascular status. PAST MEDICAL HISTORY: Includes, 1. History of hypertension. 2. Hyperlipidemia. 3. Coronary artery disease as described above. 4. Chronic renal insufficiency with creatinine at baseline. 5. Obstructive sleep apnea. ALLERGIES: None known. MEDICATIONS: Typically include Zanaflex 4 mg p.o. at bedtime, Plavix 75 every day, carvedilol 12.5 b.i.d., doxazosin 2 mg p.o. at bedtime, lisinopril 20 mg p.o. b.i.d., aspirin 81 every day, tramadol 50 every day, Lasix 40 every day, and metolazone 5 mg Sunday, Sunday and Sunday. SOCIAL HISTORY: Nonsmoker, nondrinker. Easily takes care of all his ADLs. Good family support. He has been trying to exercise post-intervention. REVIEW OF SYSTEMS: The patient reports easy bruising but reports no swollen glands. The patient reports no fever, no night sweats, no significant weight gain, no significant weight loss. No significant exercise tolerance. The patient reports no dry eyes, no irritation, no vision change. Patient reports no difficulty hearing and no ear pain. Patient reports no frequent nose bleeds or nose and sinus problems. Patient reports on arm pain on exertion. No shortness of breath while lying down. No history of heart murmur. Patient reports no cough, no wheezing or coughing up blood. Patient reports no abdominal pain, no vomiting. Normal appetite. No diarrhea and not vomiting blood. No nausea and no constipation. Patient reports no incontinence. No difficulty urinating. No hematuria. No increased frequency. Patient reports no muscle aches. No weakness, no arthralgias, no back pain. No swelling of the extremities. Patient reports no abnormal mole, no jaundice, no rashes. Reports no loss of consciousness. No weakness and no numbness. No seizures, dizziness, or headaches. The patient reports no depression, no sleep disturbance, feeling safe in a relationship and no alcohol abuse. Patient reports on fatigue. Reports no runny nose or sinus pressure. No itching, no hives, and no frequent sneezing. PHYSICAL EXAMINATION: GENERAL: Pleasant gentleman in no acute distress, appears stated age. VITAL SIGNS: Blood pressure 112/65, pulse 51 and regular. CONSULT REPORT [id number] MURTAZA REYES JR HEENT: Normocephalic, atraumatic. NECK: No JVD or bruit. HEART: Regular. LUNGS: Fairly good air excursion. ABDOMEN: Soft, nontender. EXTREMITIES: Pulses 1+ with no edema. DIAGNOSTIC DATA: EKG shows a sinus rhythm with a first-degree block. No evidence of high-grade arrhythmias; however, high degree AV block. IMPRESSION: Suspect combination of side effects of medication plus or minus some intravascular volume depletion. We would hold beta blockade and diuretics. We will start back as indicated via blood pressure given history may need less medication long-term. Further recommendations based on above. TRANSINT:[id number] Voice Confirmation ID: [id number] DOCUMENT ID: [id number] DELTA LEAL MD at 0817 CC: [id number] DICTATION DATE: 03/02/20 1610 PRESS CUTTER: 03/02/[address] [facility] [address] [place] [address]
--- NOTE | 2020-03-04 08:18 | EC ---
PATIENT:MURTAZA REYES JR DATE OF SERVICE: 03/02/20 SEX: M MEDICAL RECORD: [id number] DATE OF : 40 LOCATION:D.M2 D.212 AGE OF PATIENT: 79 ADMISSION DATE: 03/02/20 REFERRING PHYSICIAN: INTERPRETING PHYSICIAN: DELTA LEAL MD ECHOCARDIOGRAM REPORT ECHO CHARGES 4 ECHO COMPLETE Date: 03/03/20 CLINICAL DIAGNOSIS: LVF, BRADYCARDIA ECHOCARDIOGRAPHIC MEASUREMENTS (adult normal given) AC root (d.<3.7cm) 3.5 cm LV Septum d (<1.2 cm> 1.3 cm Valve Excursion 1.6 cm LV Septum (systole) 2.1 cm Left Atria (s.<4.0cm> 4.2 cm LVPW d(<1.2cm) 2.2 cm RV (d.<2.3cm) 4.0 cm LVPW (sytole) 2.4 cm LV diastole(<5.6CM) 5.9 cm MV E-F(>70mm/sec) cm LV systole 4.9 cm LVOT Diameter 1.9 cm MV exc.(>10mm) cm Est.ejection fraction (50-75%) % DOPPLER: LVIT cm/sec A 82 cm/sec E 64 cm/sec LA cm/sec RVSP 21.5 mmHg LVOT 103 cm/sec AOP1/2T m/s Asc. Ao 143 cm/sec RVOT 72 cm/sec RA cm/sec PA 80 cm/sec AV Gradient Peak 8.2 mmHg AV Mean 3.9 mmHg AV Area 2.1 cm MV Gradient Peak 5.0 mmHg MV Mean 2.7 mmHg MV Area cm COMMENTS: Lot Technician: Sid WAKEFIELD Cylinder Die Machine Operator: 3 Dr. Silva TAPE# PACS Pericardial Effusion N DATE OF SERVICE: Adequate 2D, color flow imaging, spectral Doppler and M-mode. LVH is present. LV internal dimensions are normal. Wall motion is normal. EF is greater than or equal to 55%. Aortic valve is sclerotic. No evidence of stenosis by Doppler interrogation. Left atrium is mildly dilated at 4.2 cm. Mitral valve shows no prolapse. Trace MR. Right-sided chambers are grossly normal. Mild TR. ECHOCARDIOGRAM REPORT [id number] MURTAZA RYEES JR TRANSINT:[id number] Voice Confirmation ID: [id number] DOCUMENT ID: [id number] DELTA LEAL MD at 0818 CC: [id number] DICTATION DATE: 03/03/20 1612 LEAD RETAIL SALES ASSOCIATE: 03/04/20 0203 ADM IN [facility] [address] [place] [id number]
[2020-03-04 08:25] VITALS: BP 139/71
[2020-03-04 12:42] LABS: CALCIUM 8.7 mg/dL (8.5-10.1); CARBON DIOXIDE 28.6 mmol/L (21.0-32.0); CREATININE - SERUM 2.2 mg/dL (0.6-1.3); POTASSIUM - SERUM 3.6 mmol/L (3.5-5.1)
[2020-03-04 13:10] LABS: UPE RAND - ALBUMIN 19.4 % (()); UPE RAND - ALPHA 1 GLOBULIN 7.6 % (()); UPE RAND - BETA GLOBULIN 32.7 % (()); UPE RAND - GAMMA GLOBULIN 14.2 % (())
[2020-03-04 14:09] LABS: SPE - A/G RATIO 1.2 (0.7-1.7); SPE - ALBUMIN 3.8 g/dL (2.9-4.4); SPE - ALPHA-1 GLOBULIN 0.2 g/dL (0.0-0.4); SPE - BETA GLOBULIN 0.9 g/dL (0.7-1.3); SPE - GAMMA GLOBULIN 1.2 g/dL (0.4-1.8); SPE - M-SPIKE Not Observed g/dL (Not Observed); SPE - TOTAL PROTEIN 7.1 g/dL (6.0-8.5)
== END 2020-03-04 14:15 | disposition home or self-care (01) | DRG 315 ==
LOC: D.ER 10:03 → D.M2 11:34
PROVIDERS: Family Medicine; Internal Medicine Nephrology; ADMIT Emergency Medicine; ATTEND Emergency Medicine
DX: I95.9 Hypotension, unspecified (principal); C79.51 Secondary malignant neoplasm of bone; R00.1 Bradycardia, unspecified; I25.10 Atherosclerotic heart disease of native coronary artery without angina pectoris; J44.9 Chronic obstructive pulmonary disease, unspecified; C61 Malignant neoplasm of prostate; E11.22 Type 2 diabetes mellitus with diabetic chronic kidney disease; I12.9 Hypertensive chronic kidney disease with stage 1 through stage 4 chronic kidney disease, or unspecified chronic kidney disease; N18.9 Chronic kidney disease, unspecified

== ENCOUNTER 2021-01-15 19:04 | Emergency (ER) | payer OTHER ==
[~2021-01-15] VITALS: Ht 188 cm; Wt 100.0 kg
[~2021-01-15 19:04] MED LIST changes: +BICALUTAMIDE PO; +COREG6.25 MG PO; +FUROSEMIDE20 MG PO; +HOME OXYGEN; +IRON SUPPLEMENT; +LISINOPRIL20 MG; +LISINOPRIL20 MG PO; +LISINOPRIL5 MG PO; +MIRALAX17 GM; +MIRALAX17 GM PO; +NITROSTAT0.4 MG PO; +POTASSIUM PO; +STOOL SOFTENER100 M1 PO
[2021-01-15 19:13] VITALS: Ht 188 cm; Wt 100.0 kg
[2021-01-15 19:29] LABS: BASOPHILS 0.5 % (0-2); EOSINOPHILS 4.1 % (0-7); HEMATOCRIT 32.9 % (42.0-54.0); HEMOGLOBIN 10.8 g/dL (13.5-17.5); IMMATURE GRANULOCYTES 0.3 % (0-5); LYMPHOCYTE ABS# 1.79 10x3/uL (1.32-3.57); LYMPHOCYTES 22.4 % (15-50); MCH 30.6 pg (26.0-34.0); MCHC 32.8 g/dL (31.0-37.0); MCV 93.2 fL (80.0-100.0); MEAN PLATELET VOLUME 8.6 fL (7.4-10.4); MONOCYTES 8.6 % (2-11); NEUTROPHIL ABS# 5.13 10x3/uL (1.78-5.38); NEUTROPHILS 64.1 % (40-80); PLATELET COUNT 222 10x3/uL (130-400); RBC 3.53 10x6/uL (4.20-6.10); RDW 13.2 % (11.5-14.5)
[2021-01-15 19:38] LABS: APTT 30.1 SECONDS (22.8-39.4); INR 1.08 (0.85-1.17)
[2021-01-15 19:39] LABS: CALC OSMOLALITY 284 mosm/kg (275-300); CALCIUM 8.6 mg/dL (8.5-10.1); CARBON DIOXIDE 26.2 mmol/L (21.0-32.0); CHLORIDE - SERUM 103 mmol/L (98-107); CREATININE - SERUM 2.1 mg/dL (0.6-1.3); GLUCOSE 109 mg/dL (74-106); POTASSIUM - SERUM 3.5 mmol/L (3.5-5.1); SODIUM 140 mmol/L (136-145); UREA NITROGEN 27 mg/dL (7-18); eGFR NON AFRICAN AMERICAN 32 mL/min (90-120)
[2021-01-15 19:54] LABS: ALBUMIN 3.5 g/dL (3.4-5.0); ALKALINE PHOSPHATASE 99 U/L (30-120); ALT (SGPT) 19 U/L (10-68); BILIRUBIN - TOTAL 0.37 mg/dL (0.2-1.3); CKMB 2.5 U/L (0.0-3.6); CREATINE KINASE 109 UL (21-232); MAGNESIUM - SERUM 1.7 mg/dL (1.8-2.4); PROTEIN - SERUM 7.6 g/dL (6.4-8.2); TROPONIN-I < 0.017 ng/mL (0.000-0.060)
[2021-01-15 21:13] LABS: C-REACTIVE PROTEIN 0.3 mg/dL (0.0-0.9)
[2021-01-15 21:15] VITALS: BP 170/90
== END 2021-01-15 21:15 | disposition other institution (70) ==
LOC: D.ER 19:04
PROVIDERS: Family Medicine
DX: R07.89 Other chest pain (principal); I25.10 Atherosclerotic heart disease of native coronary artery without angina pectoris; I11.0 Hypertensive heart disease with heart failure; I50.9 Heart failure, unspecified; E78.5 Hyperlipidemia, unspecified; J44.9 Chronic obstructive pulmonary disease, unspecified; K21.9 Gastro-esophageal reflux disease without esophagitis

== ENCOUNTER 2021-01-20 14:09 | Observation (INO) | payer OTHER ==
[~2021-01-20] VITALS: Ht 188 cm; Wt 113.0 kg
[2021-01-20] MEDS ORDERED: HYDROCODONE-AC1 EAC2 PO (14:19)
[2021-01-20 15:55] VITALS: BP 181/86
--- NOTE | 2021-01-20 15:56 | NUR ---
12 LEAD ECG REPEATED. NTG 0.4MG SL GIVEN FOR C/O SUBSTERNAL CHEST PRESSURE AND SHOOTING PAIN IN RIGHT LATERAL CHEST. PATIENT STATES SUBSTERNAL PAIN RELEIVED AFTER 5 MINS
[2021-01-20 16:10] LABS: BASOPHILS 0.4 % (0-2); EOSINOPHILS 5.5 % (0-7); HEMATOCRIT 34.3 % (42.0-54.0); IMMATURE GRANULOCYTES 0.3 % (0-5); LYMPHOCYTE ABS# 1.71 10x3/uL (1.32-3.57); LYMPHOCYTES 22.5 % (15-50); MCHC 32.1 g/dL (31.0-37.0); MCV 93.5 fL (80.0-100.0); MEAN PLATELET VOLUME 8.7 fL (7.4-10.4); MONOCYTES 10.1 % (2-11); NEUTROPHIL ABS# 4.65 10x3/uL (1.78-5.38); NEUTROPHILS 61.2 % (40-80); PLATELET COUNT 219 10x3/uL (130-400); RBC 3.67 10x6/uL (4.20-6.10); RDW 13.3 % (11.5-14.5); WBC 7.6 10x3/uL (4.8-10.8)
[2021-01-20 16:15] VITALS: BP 147/884
[2021-01-20 16:17] LABS: APTT 28.1 SECONDS (22.8-39.4); CALC OSMOLALITY 283 mosm/kg (275-300); CALCIUM 9.2 mg/dL (8.5-10.1); CARBON DIOXIDE 29.3 mmol/L (21.0-32.0); CHLORIDE - SERUM 103 mmol/L (98-107); CREATININE - SERUM 2.3 mg/dL (0.6-1.3); GLUCOSE 108 mg/dL (74-106); INR 1.03 (0.85-1.17); POTASSIUM - SERUM 3.8 mmol/L (3.5-5.1); PROTIME 12.5 SECONDS (11.6-15.0); SODIUM 139 mmol/L (136-145); UREA NITROGEN 26 mg/dL (7-18); eGFR NON AFRICAN AMERICAN 29 mL/min (90-120)
[2021-01-20 16:34] LABS: ALBUMIN 3.4 g/dL (3.4-5.0); ALKALINE PHOSPHATASE 112 U/L (30-120); ALT (SGPT) 19 U/L (10-68); BILIRUBIN - TOTAL 0.42 mg/dL (0.2-1.3); CKMB 2.2 U/L (0.0-3.6); CREATINE KINASE 88 UL (21-232); MAGNESIUM - SERUM 1.8 mg/dL (1.8-2.4); PROTEIN - SERUM 7.4 g/dL (6.4-8.2); TROPONIN-I < 0.017 ng/mL (0.000-0.060)
[2021-01-20 17:00] VITALS: BP 120/52
--- NOTE | 2021-01-20 18:45 | NUR ---
AHA SUPPER DIET GIVEN. NO C/O PAIN.
[2021-01-20 19:19] VITALS: BP 164/72
--- NOTE | 2021-01-20 19:49 | NUR ---
REPORT CALLED TO [facility] ROOM IS STILL DIRTY. NURSE WILL CALL WHEN CLEAN
[2021-01-20 20:31] LABS: BILIRUBIN NEGATIVE (NEGATIVE); KETONE NEGATIVE (NEGATIVE); NITRITE NEGATIVE (NEGATIVE); UROBILINOGEN NORMAL mg/dL (< 2)
[2021-01-20 20:34] LABS: BACTERIA FEW HPF (NONE SEEN); WHITE CELLS - URINE 3 HPF (0-1)
[2021-01-20 22:48] VITALS: BP 177/88
[2021-01-20] MEDS ORDERED: METOLAZONE5 MG PO (22:52)
--- NOTE | 2021-01-20 23:15 | NUR ---
PT ARRIVED TO FLOOR AT 2144. PT A/O X4. RR E/U. TELE PLACED. PT RUNNING 69-SR. PT VERY LOWER [place] SON IS AT BEDSIDE. INSINITIVE SPIROMETER AT BEDSIDE, INSTRUCTED PT ON USAGE. PT DENIES ANY FURTHER NEEDS AT THIS TIME. BED LOW CALL LIGHT WITHIN REACH. WILL CONTINUE TO MONITOR.
[2021-01-20 23:44] VITALS: BP 164/72; BMI 34.1
[2021-01-21 01:01] LABS: CKMB 2.1 U/L (0.0-3.6); CREATINE KINASE 88 UL (21-232)
[2021-01-21 01:02] LABS: TROPONIN-I < 0.017 ng/mL (0.000-0.060)
[2021-01-21 04:00] VITALS: BP 118/76
[2021-01-21 07:41] LABS: BASOPHILS 0.6 % (0-2); EOSINOPHILS 6.2 % (0-7); HEMATOCRIT 33.7 % (42.0-54.0); HEMOGLOBIN 10.9 g/dL (13.5-17.5); IMMATURE GRANULOCYTES 0.1 % (0-5); LYMPHOCYTE ABS# 1.49 10x3/uL (1.32-3.57); LYMPHOCYTES 22.1 % (15-50); MCH 30.2 pg (26.0-34.0); MCHC 32.3 g/dL (31.0-37.0); MCV 93.4 fL (80.0-100.0); MONOCYTES 10.1 % (2-11); NEUTROPHILS 60.9 % (40-80); PLATELET COUNT 233 10x3/uL (130-400); RBC 3.61 10x6/uL (4.20-6.10); RDW 13.2 % (11.5-14.5); WBC 6.7 10x3/uL (4.8-10.8)
[2021-01-21 07:44] LABS: ALBUMIN 3.3 g/dL (3.4-5.0); ALKALINE PHOSPHATASE 88 U/L (30-120); ALT (SGPT) 16 U/L (10-68); BILIRUBIN - TOTAL 0.64 mg/dL (0.2-1.3); CALC OSMOLALITY 282 mosm/kg (275-300); CALCIUM 8.7 mg/dL (8.5-10.1); CHLORIDE - SERUM 103 mmol/L (98-107); CKMB 2.2 U/L (0.0-3.6); CREATINE KINASE 99 UL (21-232); CREATININE - SERUM 2.3 mg/dL (0.6-1.3); GLUCOSE 104 mg/dL (74-106); MAGNESIUM - SERUM 1.8 mg/dL (1.8-2.4); PHOSPHOROUS 3.9 mg/dL (2.5-4.9); POTASSIUM - SERUM 4.3 mmol/L (3.5-5.1); PRO BNP 1577 pg/mL (0-450); PROTEIN - SERUM 6.8 g/dL (6.4-8.2); SODIUM 140 mmol/L (136-145); TROPONIN-I < 0.017 ng/mL (0.000-0.060); UREA NITROGEN 25 mg/dL (7-18); eGFR NON AFRICAN AMERICAN 29 mL/min (90-120)
[2021-01-21 08:14] VITALS: BP 145/78
[2021-01-21 11:49] VITALS: BP 131/61
[2021-01-21 13:06] VITALS: Ht 188 cm; Wt 113.0 kg
[2021-01-21 13:44] LABS: CKMB 2.7 U/L (0.0-3.6); CREATINE KINASE 96 UL (21-232); TROPONIN-I < 0.017 ng/mL (0.000-0.060)
[2021-01-21 21:53] VITALS: BP 103/47
--- NOTE | 2021-01-21 23:39 | NUR ---
PT RESTING WITH EYES CLOSED. RESP EVEN AND REGULAR. SR UP X1, CALL LIGHT WITHIN REACH.
[2021-01-22 01:54] VITALS: BP 102/57
--- NOTE | 2021-01-22 02:34 | NUR ---
PT RESTING WTIH EYES CLOSED. RESP EVEN AND REGULAR. SR UP X1, CALL LIGHT WITHIN REACH.
--- NOTE | 2021-01-22 04:05 | NUR ---
PT RESTING WITH EYES CLOSED. RESP EVEN AND REGULAR. SR UP X1, CALL LIGHT WITHIN REACH.
[2021-01-22 06:04] LABS: BASOPHILS 0.4 % (0-2); HEMATOCRIT 33.6 % (42.0-54.0); HEMOGLOBIN 10.9 g/dL (13.5-17.5); IMMATURE GRANULOCYTES 0.2 % (0-5); LYMPHOCYTE ABS# 1.09 10x3/uL (1.32-3.57); LYMPHOCYTES 21.1 % (15-50); MCH 30.4 pg (26.0-34.0); MCHC 32.4 g/dL (31.0-37.0); MCV 93.9 fL (80.0-100.0); MEAN PLATELET VOLUME 9.2 fL (7.4-10.4); MONOCYTES 8.5 % (2-11); NEUTROPHIL ABS# 3.35 10x3/uL (1.78-5.38); NEUTROPHILS 64.8 % (40-80); PLATELET COUNT 227 10x3/uL (130-400); RBC 3.58 10x6/uL (4.20-6.10); RDW 13.1 % (11.5-14.5); WBC 5.2 10x3/uL (4.8-10.8)
[2021-01-22 06:24] VITALS: BP 100/50
[2021-01-22 06:31] LABS: ALBUMIN 3.3 g/dL (3.4-5.0); ANION GAP 11.9 mmol/L (8-16); BILIRUBIN - TOTAL 0.68 mg/dL (0.2-1.3); CARBON DIOXIDE 30.1 mmol/L (21.0-32.0); CREATININE - SERUM 2.5 mg/dL (0.6-1.3); PHOSPHOROUS 3.7 mg/dL (2.5-4.9); PROTEIN - SERUM 7.3 g/dL (6.4-8.2)
--- NOTE | 2021-01-22 06:41 | NUR ---
VSS THROUGHOUT NIGHT. SR PER CM. PT DENIED ANY DISCOMFORT. AM FSBS 114. NO COVERAGE NEEDED. NPO FOR STRESS TEST THIS AM. WILL CONTINUE TO MONITOR.
--- NOTE | 2021-01-22 07:00 | NUR ---
RECEIVED REPORT. ASSUMED CARE OF PATEINT. PATIENT RESTING WELL IN BED WITH EYES CLOSED, EASILY AROUSED. WHITE BOARD UPDATED, BEDSIDE SHIFT REPORT COMPLETE. CALL LIGHT WITHIN REACH. PT AWARE OF NPO STATUS DUE TO CARDIOLYTE STRESS TEST THIS AM. NO DISTRESS.
[2021-01-22 08:17] VITALS: BP 107/40
--- NOTE | 2021-01-22 10:10 | NUR ---
PATIENT REMAINS OFF UNIT FOR CARDIOLYTE STRESS TEST AT THIS TIME. UNABLE TO ADMINISTER MEDICATIONS IN A TIMELY MANNER.
--- NOTE | 2021-01-22 10:41 | NUR ---
PATIENT RETURNED FROM CARDIOLYTE STRESS TEST, AM MEDICATIONS ADMINISTERED LATE BUT ORDERED. PATIENT CONSUMING PEANUT BUTTER CRACKERS AT THIS TIME. NO DISTRESS.
--- NOTE | 2021-01-22 11:47 | NUR ---
FSBS 131. NO INSULIN PER SLIDING SCALE.
[2021-01-22 12:48] VITALS: BP 116/50
--- NOTE | 2021-01-22 16:08 | NUR ---
FSBS 151. 2 UNITS HUMALOG ADMINISTERED PER SLIDING SCALE AT THIS TIME. NO DISTRESS.
[2021-01-22 16:37] VITALS: BP 100/49
--- NOTE | 2021-01-22 19:43 | NUR ---
INITIAL ROUNDS COMPLETED. PT DENIED ANY DISCOMFORT. CALL LIGHT WITHIN REACH.
[2021-01-22 20:30] VITALS: BP 114/68
--- NOTE | 2021-01-22 20:36 | NUR ---
ASSESSMENT COMPLETED AT 2034 HRS. PT DENIED ANY DISCOMFORT. SB PER CM HR 56. PT SOBOBA. ALERT AND ORIENTED TO PERSON, PLACE AND TIME. PRINGLE. IV TO LAC SL. 1+ PEDAL EDEMA NOTED BILAT. PB FSBS 97. NO COVERAGE NEEDED. CALL LIGHT WITHIN REACH.
--- NOTE | 2021-01-23 00:21 | NUR ---
PT RESTING WITH EYES CLOSED. RESP EVEN AND REGULAR. CALL LIGHT WITHIN REACH.
[2021-01-23 01:56] VITALS: BP 132/66
--- NOTE | 2021-01-23 02:09 | NUR ---
PT RESTING WITH EYES CLOSED. RESP EVEN AND REGULAR. CALL LIGHT WITHIN REACH.
--- NOTE | 2021-01-23 04:04 | NUR ---
PT RESTING WITH EYES CLOSED. RESP EVEN AND REGULAR. CALL LIGHT WITHIN REACH.
[2021-01-23 05:48] VITALS: BP 104/47
--- NOTE | 2021-01-23 05:50 | NUR ---
VSS THROUGHOUT NIGHT. SB PER CM. PT DENIED ANY DISCOMFORT. AM FSBS 123. NO COVERAGE NECESSARY. NEEDS MET; WILL CONTINUE TO MONITOR.
[2021-01-23 06:11] LABS: BASOPHILS 0.3 % (0-2); EOSINOPHILS 3.5 % (0-7); HEMATOCRIT 32.9 % (42.0-54.0); HEMOGLOBIN 10.6 g/dL (13.5-17.5); LYMPHOCYTE ABS# 1.32 10x3/uL (1.32-3.57); LYMPHOCYTES 19.3 % (15-50); MCH 30.1 pg (26.0-34.0); MCHC 32.2 g/dL (31.0-37.0); MCV 93.5 fL (80.0-100.0); MEAN PLATELET VOLUME 9.1 fL (7.4-10.4); MONOCYTES 9.9 % (2-11); NEUTROPHIL ABS# 4.59 10x3/uL (1.78-5.38); PLATELET COUNT 225 10x3/uL (130-400); RBC 3.52 10x6/uL (4.20-6.10); RDW 13.3 % (11.5-14.5)
[2021-01-23 06:21] LABS: WBC 6.9 10x3/uL (4.8-10.8)
[2021-01-23 06:38] LABS: ALBUMIN 3.3 g/dL (3.4-5.0); ANION GAP 12.1 mmol/L (8-16); BILIRUBIN - TOTAL 0.68 mg/dL (0.2-1.3); CALCIUM 8.7 mg/dL (8.5-10.1); CARBON DIOXIDE 25.9 mmol/L (21.0-32.0); CREATININE - SERUM 2.4 mg/dL (0.6-1.3); PHOSPHOROUS 3.3 mg/dL (2.5-4.9); PROTEIN - SERUM 7.1 g/dL (6.4-8.2)
--- NOTE | 2021-01-23 07:00 | NUR ---
RECIEVED REPORT. ASSUMED CARE OF PATIENT. WHITE BOARD UPDATED, BEDSIDE SHIFT REPORT COMPLETED. PATIENT RESTING WITH EYES CLOSED, RESP EVEN AND UNLAOBRED. CALL LIGHT WITHIN REACH. NO DISTRESS.
[2021-01-23 08:47] VITALS: BP 102/50
--- NOTE | 2021-01-23 10:59 | NUR ---
FSBS 127. NO INSULIN PER SLIDING SCALE.
[2021-01-23 12:16] VITALS: BP 105/52
[2021-01-23] MEDS ORDERED: PLAVIX75 MG PO (12:47)
[2021-01-23] MEDS ORDERED: CARDURA4 MG PO (12:48)
[2021-01-23] MEDS ORDERED: COREG6.25 MG PO (12:48)
[2021-01-23] MEDS ORDERED: LIPITOR20 MG PO (12:48)
[2021-01-23] MEDS ORDERED: LISINOPRIL5 MG PO (12:48)
--- NOTE | 2021-01-23 13:19 | NUR ---
DISCHARGE NOT APPROVED BY CARDIOLOGY, WAITING ON RESULTS OF STRESS TEST THAT WAS COMPLETED ON 01/22/21 BEFORE PATIENT CAN BE DISCHARGED. PATIENT MADE AWARE. THANKED .
--- NOTE | 2021-01-23 16:07 | NUR ---
FSBS 125. NO INSULIN ADMINISTERED PER SLIDING SCALE.
[2021-01-23 16:22] VITALS: BP 104/52
--- NOTE | 2021-01-23 16:25 | EC ---
PATIENT:MURTAZA REYES JR DATE OF SERVICE: 01/20/21 SEX: M MEDICAL RECORD: [id number] DATE OF : 40 LOCATION:D.M2 D.211 AGE OF PATIENT: 80 ADMISSION DATE: 01/20/21 REFERRING PHYSICIAN: INTERPRETING PHYSICIAN: BOOKER YANEZ MD ECHOCARDIOGRAM REPORT ECHO CHARGES 4 ECHO COMPLETE Date: 01/21/21 CLINICAL DIAGNOSIS: ABN,LAB,SOB,CP,EDEMA ECHOCARDIOGRAPHIC MEASUREMENTS (adult normal given) AC root (d.<3.7cm) 3.6 cm LV Septum d (<1.2 cm> 1.4 cm Valve Excursion 1.6 cm LV Septum (systole) 1.5 cm Left Atria (s.<4.0cm> 4.6 cm LVPW d(<1.2cm) 1.3 cm RV (d.<2.3cm) 4.0 cm LVPW (sytole) 1.2 cm LV diastole(<5.6CM) 5.6 cm MV E-F(>70mm/sec) cm LV systole 4.0 cm LVOT Diameter 2.0 cm MV exc.(>10mm) cm Est.ejection fraction (50-75%) 55 % DOPPLER: LVIT cm/sec A 101 cm/sec E 67 cm/sec LA cm/sec RVSP 21 mmHg LVOT 117 cm/sec AOP1/2T m/s Asc. Ao 115 cm/sec RVOT 65 cm/sec RA 3.9 cm/sec PA 83 cm/sec AV Gradient Peak 5 mmHg AV Mean 2 mmHg AV Area cm MV Gradient Peak 5 mmHg MV Mean 1 mmHg MV Area cm COMMENTS: Firer Locomotive: Alexandro MARMOLEJO Sleeve Sewer: 2 Dr. Wilkerson TAPE# Pericardial Effusion Y DATE OF SERVICE: DIAGNOSES: Chest pain and edema. INTERPRETATION: Normal left ventricular chamber size and contractile function, ejection fraction of 55%. FINDINGS: Left atrial chamber is mildly dilated. Right atrium and right ventricular chamber size and function appears normal. Aortic valve is not well visualized. Mild calcification of the aortic valve with good cusp excursion. ECHOCARDIOGRAM REPORT [id number] MURTAZA REYES JR Mild aortic regurgitation. No aortic stenosis noted. Mitral valve appears normal. Mild mitral annular calcification. Trace mitral regurgitation. Tricuspid valve appears normal. Trace tricuspid regurgitation. Pulmonic valve is not well visualized. No pulmonary insufficiency noted. No pericardial effusion noted. IMPRESSION: Normal left ventricular chamber size and contractile function with ejection fraction of 55%. TRANSINT:[id number] Voice Confirmation ID: [id number] DOCUMENT ID: [id number] BOOKER YANEZ MD at 1625 CC: [id number] DICTATION DATE: 01/22/21 1239 SPORTS EDITOR: 01/22/21 1336 ADM IN [place] [id number] [place] [address]
--- NOTE | 2021-01-23 16:30 | NUR ---
CALLED AND STATED PER CARDIOLOGY, PATIENT CAN BE DISCHARGED TO HOME NOW. FOLLOW UP WITH CARDIOLOGY IN 2-3 WEEKS, CONTINUE CURRENT MEDICATION.
--- NOTE | 2021-01-23 18:15 | NUR ---
TELEMETRY REMOVED at 1700 20 GAUGE IV REMOVED FROM LEFT AC AT 1705. CATHETER TIP INTACT. NO BLEEDING FROM SITE. 2X2 GAUZE APPLIED AND SECURED WITH BANDAID. DISCHARGE INSTRUCTIONS PROVIDED TO PATIENT AND HIS SON. BOTH VERBALIZED UNDERSTANDING OF ALL INSTRUCTIONS PROVIDED. PATIENT LEFT UNIT AT 1730 WITH ALL PERSONAL BELONGINGS INCLUDING CELLPHONE AND CELLPHONE LABORER VEGETABLE FARM. CLIENT ACCOUNT SPECIALIST FOR BOTH THIS PATIENT AND PATIENT THAT WAS DISCHARGED FROM 2114 WERE RETURNED TO ENGINEERING AND SCIENTIFIC PROGRAMMER AT THIS TIME. PATIENT LEFT UNIT VIA WHEELCHAIR IN NO ACUTE DISTRESS. PATIENT THANKED THIS USER EXPERIENCE ARCHITECT FOR ALL CARES RENDERED.
== END 2021-01-23 17:30 | disposition home or self-care (01) ==
LOC: D.ER 14:09 → D.M2 18:05 → OBSVTIME 18:05 → D.M2 01-23 17:30
PROVIDERS: Family Medicine; ADMIT Family Medicine; ATTEND Family Medicine
DX: R07.9 Chest pain, unspecified (principal); G47.33 Obstructive sleep apnea (adult) (pediatric); E78.5 Hyperlipidemia, unspecified; K21.9 Gastro-esophageal reflux disease without esophagitis; C61 Malignant neoplasm of prostate; D64.9 Anemia, unspecified; N18.9 Chronic kidney disease, unspecified; M19.90 Unspecified osteoarthritis, unspecified site; E11.22 Type 2 diabetes mellitus with diabetic chronic kidney disease; I12.9 Hypertensive chronic kidney disease with stage 1 through stage 4 chronic kidney disease, or unspecified chronic kidney disease; R06.02 Shortness of breath; I20.0 Unstable angina

== ENCOUNTER → 2021-03-14 19:08 | Outpatient (CLI) | payer OTHER ==
[2021-01-21 13:06] VITALS: BMI 32.0
[~2021-03-14 19:08] MED LIST changes: +HYDROCODONE-AC1 EAC2 PO; +LIPITOR20 MG PO
[2021-03-14 20:17] LABS: ANION GAP 13.7 mmol/L (8-16); CALCIUM 8.9 mg/dL (8.5-10.1); CARBON DIOXIDE 28.3 mmol/L (21.0-32.0); CREATININE - SERUM 2.9 mg/dL (0.6-1.3)
== END | disposition home or self-care (01) ==
LOC: D.LABREF 19:08
PROVIDERS: ATTEND Internal Medicine Cardiovascular Disease
DX: I10 Essential (primary) hypertension (principal)

== ENCOUNTER 2021-03-24 06:46 | Day surgery (SDC) | payer OTHER ==
[~2021-03-24] VITALS: Ht 185.4 cm; Wt 120.2 kg
--- NOTE | ~2021-03-24 | HEMODYNAMI ---
PATIENT:MURTAZA REYES JR MEDICAL RECORD: [id number] : 40 LOCATION:[facility] ADMISSION DATE: 03/24/21 Generatedon:19:17 Patient name: MURTAZA REYES Patient #: [id number] SSN: [id number] : 1940 Date of study: 03/24/2021 Page: Of Hemodynamic Procedure Report Patient Data Patient Demographics Procedure consent was obtained First Name: MURTAZA Gender: Male Last Name: AMY Suffix: Patient #: [id number] : 1940 Age: 80 year(s) SSN: [id number] Race: Unknown Additional ID: [id number] Contact details Address: [address] [place] [address] rd State: [place] City: [place] Zip code: [address] Past Medical History Allergies: No known allergies Admission Admission Data Admission Date: 03/24/2021 Admission Time: 6:46 Admit Source: Other Height (in.): 72.83 BSA: 2.42 (m2) Height (cm.): 185 BMI: 35.13 (kg/m2) Weight (lbs.): 265.04 Weight (kg.): 120.22 Current Diagnosis Diagnosis Description Stable angina Lab Results Lab Result Date: 03/24/2021 Lab Result Time: 0:00 Biochemistry Name Units Result Min Max BUN mg/dl 49 --(----)-* 7 18 Creatinine mg/dl 2.7 --(----)-* 0.6 1.3 CBC Name Units Result Min Max Hemoglobin g/dl 10.5 *-(----)-- 13.5 17.5 Procedure Procedure Types Cath Procedure Diagnostic Procedure C Coronaries w/Grafts Sedation Charges Moderate Sedation 25-39 minutes Procedure Description Procedure Date Procedure Date: 03/24/2021 Procedure Start Time: 8:52 Procedure End Time: 9:14 Procedure Staff Name Function Yefri Wilkerson MD Performing Physician Savannah Hou RT Scrub Vneu Millard RT Monitor Shweta Molina RN Nurse Procedure Data Cath Procedure Fluoroscopy Diagnostic fluoroscopy Total fluoroscopy Time: 6.7 time: 6.7 min min Diagnostic fluoroscopy Total fluoroscopy dose: 733 dose: 733 mGy mGy Contrast Material Contrast Material Type Amount (ml) Isovue 300 48 Entry Location Entry Primary Successful Side Size Upsize Upsize Entry Closure Succes sful Closure Location (Fr) 1 (Fr) 2 (Fr) Remarks Device Remarks Femoral Right 5 Fr Exoseal artery Diagnostic catheters Device Type Used For End Catheter Placement MULTIPACK JL 4.0 5Fr Left Coronary catheter Angiography DIAGNOSTIC AR MOD 5Fr Right Coronary Catheter ([id number]) Angiography DIAGNOSTIC IM 5Fr SVG Angiography catheter ([id number]) Procedure Complications No complications Procedure Medications Medication Administration Route Dosage Oxygen etCO2 Nasal cannula 2 l/min Heparin Flush Bag added to field 2 bags (1000units/500ml NS) Lidocaine 2% added to field 20 0.9% NaCl I.V. 100 ml/hr Fentanyl I.V. 25 mcg Versed I.V. 1 mg Versed I.V. 0.5 mg Fentanyl I.V. 25 mcg Fentanyl I.V. 25 mcg Versed I.V. 0.5 mg Hemodynamics Rest HGB: 10.5 (g/dl) O2 Consumption: Estimated: 259.74 (ml/min) O2 Consumption index ed: Estimated:107.33 (ml/min/m) Heart Rate: 52 (bpm) Snapshots Pre Cath Intra NCS Post Cath Vital Signs Time Heart Resp SPO2 etCO2 NIBP (mmHg) Rhythm Pain Sedation Rate (ipm) (%) (mmHg) Status Level (bpm) 8:34:03 45 19 38.3 163/73(133) NSR 0 (11) 10(A) , No pain 8:38:46 51 19 36.8 147/71(123) NSR 0 (11) 10(A) , No pain 8:43:25 51 10 96 23.3 138/71(111) NSR 0 (11) 10(A) , No pain 8:47:59 56 14 100 38.2 139/71(116) NSR 0 (11) 9(A) , No pain 8:52:58 58 12 100 37.6 Measuring NSR 0 (11) 9(A) , No pain 8:53:51 56 16 100 40.5 149/75(127) NSR 0 (11) 9(A) , No pain 8:58:34 51 14 100 19.5 131/62(109) NSR 0 (11) 9(A) , No pain 9:03:04 58 18 100 39 138/73(119) NSR 0 (11) 9(A) , No pain 9:07:36 56 13 100 38.3 136/74(112) NSR 0 (11) 9(A) , No pain 9:12:11 55 14 100 40.6 138/67(110) NSR 0 (11) 9(A) , No pain Medications Time Medication Route Dose Verified Delivered Reason Notes Effe ctiveness by by 8:33:39 Oxygen etCO2 2 Shweta Shweta for low 02 Nasal l/min Jesse Molina sats cannula RN RN 8:33:48 Heparin Flush added 2 Shweta Shweta used for Bag to bags Jesse Molina, procedure (1000units/500ml field RN RN NS) 8:35:16 Lidocaine 2% added 20ml Shweta Yefri for local to vial Rock Molina MD anesthetic field RN 8:35:27 0.9% NaCl I.V. 100 Shweta Shweta Per ml/hr Jesse Molina, physician RN RN 8:43:54 Fentanyl I.V. 25 Shweta Shweta for mcg Molina, Molina, sedation RN RN 8:44:02 Versed I.V. 1 mg Shweta Shweta for Molina, Molina, sedation RN RN 8:52:30 Versed I.V. 0.5 Shweta Shweta for mg Molina, Molina, sedation RN RN 8:53:12 Fentanyl I.V. 25 Shweta Shweta for mcg Molina, Molina, sedation RN RN 9:06:37 Fentanyl I.V. 25 Shweta Shweta for mcg Molina, Molina, sedation RN RN 9:06:41 Versed I.V. 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 8:24:44 Shweta Molina RN sent for patient. Start room use. 8:24:46 Procedure Status Elective Heart Cath (OP). 8:24:48 Time tracking: Regular hours (M-F 7:00 - 5:00) 8:24:52 Plan of Care:Hemodynamics will remain stable., Cardiac rhythm will remain stable., Comfort level will be maintained., Respiratory function will remain adequate., Patient/ family verbilizes understanding of procedure., Procedure tolerated without complication., Recovers from procedure without complications.. 8:26:16 Patient received from Pre/Post Procedure Room to CCL 1 Alert and oriented. Tansferred to table in Supine position. 8:26:18 Warm blankets applied, and curly hugger turned on for patient comfort. 8:26:18 Signed procedure consent form obtained from patient. 8:26:19 ECG and BP/O2 sat monitors applied to patient. 8:26:19 Correct patient and procedure confirmed by team. 8:32:23 Vital chart was started 8:32:24 Baseline sample Acquired. 8:32:27 Rhythm: sinus rhythm 8:32:28 Full Disclosure recording started 8:32:32 H&P Date Dictated: 03/24/2021 H&P Addendum completed by physician on day of procedure. (MUST COMPLETE FOR ALL OUTPATIENTS). 8:32:33 Pre-procedure instructions explained to patient. 8:32:34 Pre-op teaching completed and patient verbalized understanding. 8:32:36 Family in waiting room. 8:32:37 Patient NPO since Midnight. 8:32:49 Is the patient allergic to Iodine/contrast media? No. 8:32:52 Is patient on blood thinner?Yes 8:32:55 ACC The patient was administered the following blood thiners within the last 24 hours: ACCPlavix 8:33:39 Oxygen 2 l/min etCO2 Nasal cannula was administered by Swheta Molina RN; for low 02 sats; Verbal order read back and verified. 8:33:48 Heparin Flush Bag (1000units/500ml NS) 2 bags added to field was administered by Shweta Molina RN; used for procedure; Verbal order read back and verified. 8:34:33 Patient diabetic? Yes. 8:34:35 ----Pre-sedation anethsthesia assessment.---- 8:34:38 Previous problem with sedation/anesthesia? No ? 8:34:39 Snore? Yes 8:34:41 Sleep apnea? No 8:34:43 Deviated septum? No 8:34:47 Opens mouth fully? Yes 8:34:49 Sticks out tongue? Yes 8:34:51 Airway obstruction? No ? 8:34:53 Dentures? No ? 8:34:57 Pre procedure: right dorsailis pedis pulse 2+ Normal; easily identifiable; not easily obliterated 8:35:00 Patient pain scale 0/10 ?. 8:35:07 IV patent on arrival in left hand with 0.9% NaCl at [facility]. 8:35:16 Lidocaine 2% 20ml vial added to field was administered by Yefri Wilkerson MD; for local anesthetic; Verbal order read back and verified. 8:35:27 0.9% NaCl 100 ml/hr I.V. was administered by Shweta Molina RN; Per physician; Verbal order read back and verified. 8:38:55 Lab Result : Hemoglobin 10.5 g/dl 8:38:55 Lab Result : Creatinine 2.7 mg/dl 8:38:55 Lab Result : BUN 49 mg/dl 8:39:00 Lab results completed and on chart. 8:39:03 Risk of Mortality: 2 8:39:06 Risk of blood transfusion: 5.7 8:39:10 Risk of FRANCIA: 3.8 8:39:14 Right groin area was prepped with chlora-prep and draped in sterile fashion 8:39:16 Sharps counted by scrub and verified by R.N. 8:39:16 Alarms reviewed by R. N. 8:39:20 Physician arrived 8:39:22 --------ALL STOP TIME OUT------ 8:39:23 Final Timeout: patient, procedure, and site verified with staff and physician. All members of the team are in agreement. 8:39:24 Right groin site verified by team. 8:39:36 Fire Safety Assessment: A--An alcohol-based skin anteseptic being used preoperatively., C--Open oxygen or nitrous oxide is being used., D--An ESU, laser, or fiber-optic light is being used. 8:39:40 Physical assessment completed. ASA score P 2 - A patient with mild systemic disease as per Yefri Wilkerson MD. 8:39:50 4) 15-29 [place] reduced kidney function. 8:40:12 Maximum allowable contrast dose (3.7 X eGFR X 0.75)66 ml. 8:40:16 Sedation plan: IV Moderate Sedation Medication:Versed, Fentanyl 8:43:54 Fentanyl 25 mcg I.V. was administered by Shweta Molina RN; for sedation; Verbal order read back and verified. 8:44:02 Versed 1 mg I.V. was administered by Shweta Molina RN; for sedation; Verbal order read back and verified. 8:46:01 If diabetic: On Metformin? No 8:46:49 Zero performed for pressure channel P1 8:48:49 Patient Height : 72.83 inches 8:48:54 Patient Weight : 265.04 lbs 8:49:05 Current Diagnosis : Stable angina 8:49:27 Use device set Femoral Dx 8:49:28 Bag Decanter (2002S) opened to sterile field. 8:49:28 ACIST Syringe (55211) opened to sterile field. 8:49:29 Medline Cath Pack ([id number]) opened to sterile field. 8:49:30 ACIST Hand Control (97400) opened to sterile field. 8:49:31 DIAGNOSTIC Multipack 5Fr catheter set ([id number]) opened to sterile field. 8:49:31 ACIST Manifold (27164) opened to sterile field. 8:49:32 Tegaderm 4 x 4 (1626W) opened to sterile field. 8:49:34 SHEATH 5FR [place] (QNN669) opened to sterile field. 8:49:35 EMERALD Guide Wire (565-979) opened to sterile field. 8:49:43 Procedure started. 8:52:30 Versed 0.5 mg I.V. was administered by Shweta Molina RN; for sedation; Verbal order read back and verified. 8:52:33 Local anesthetic to right femoral artery with Lidocaine 2% by Yefri Wilkerson MD.INITIAL ACCESS ONLY 8:52:47 A 5 Fr sheath was inserted into the Right Femoral artery 8:53:11 Fentanyl 25 mcg I.V. was administered by Shweta Molina RN; for sedation; Verbal order read back and verified. 8:58:55 A MULTIPACK JL 4.0 5Fr catheter was advanced over the wire and used for Left Coronary Angiography. 8:59:02 LCA angiography performed. 8:59:50 Catheter exchanged over wire. 9:00:15 A DIAGNOSTIC AR MOD 5Fr Catheter ([id number]) was advanced over the wire and used for Right Coronary Angiography. 9:01:21 RCA angiography performed. 9:01:52 SVG to RCA angiography performed. 9:04:05 Catheter exchanged over wire. 9:04:18 A DIAGNOSTIC IM 5Fr catheter ([id number]) was advanced over the wire and used for SVG Angiography.Using the glidewire. 9:04:24 LARSON to LAD angiography performed. 9:06:29 GLIDE WIRE ANGLE 260cm (FE8782) opened to sterile field. 9:06:37 Fentanyl 25 mcg I.V. was administered by Shweta Molina RN; for sedation; Verbal order read back and verified. 9:06:41 Versed 0.5 mg I.V. was administered by Shweta Molina RN; for sedation; Verbal order read back and verified. 9:10:26 Catheter exchanged over wire. 9:10:33 EXOSEAL 5Fr (EX500) opened to sterile field. 9:10:47 Contrast amount:Isovue 300 48ml. 9:10:54 Sheath removed intact; hemostasis achieved with Exoseal to the Right Femoral artery. 9:11:05 Procedure ended.(Physican Out) 9:11:39 Fluoroscopy time 06.70 minutes. 9:11:57 Fluoroscopy dose: 733 mGy 9:11:57 Flurop Dose total: 733 9:12:04 Dose Area Product 76411 mGy/cm. 9:12:08 Maximum allowable dose exceeded? No. 9:12:10 Sharps counted by scrub and verified by R.N. 9:12:11 Insertion/operative site no bleeding no hematoma. 9:12:13 Post-op/insertion site Right Femoral artery dressed using a 4 x 4 and Tegaderm. 9:12:17 Post right femoral artery:stable 9:12:19 Post Procedure Pulses reassessed and unchanged 9:12:23 Post procedure: right dorsailis pedis pulse 1+ Palpable, but thready & weak; easily obliterated. 9:12:28 Post procedure rhythm: unchanged. 9:12:32 Post-procedure physical assessment completed. ASA score P 2 - A patient with mild systemic disease as per Yefri Wilkerson MD. 9:12:33 Post procedure instruction explained to patient.Patient verbalizes understanding. 9:12:36 Procedure and supply charges have been captured, reviewed, submitted and are correct. 9:14:36 Procedure Complication : No complications 9:14:38 Vital chart was stopped 9:14:40 [facility] Findings: MVD- MD will discuss options w/ pt 9:14:44 Operative report dictated upon procedure completion. 9:14:45 See physician's report for complete and final results. 9:14:47 Report given to Pre/Post Procedure Room. 9:14:50 Patient transfered to Pre/Post Procedure Room with Stretcher. 9:14:52 Full Disclosure recording stopped 9:14:52 Procedure ended. 9:14:55 End room use (Document Last) Device Usage Item Name Manufacture Quantity Catalog Hospital Part Current Minimal L ot# / Number Charge Number Stock Stock Serial# Code ACIST Acist 1 [id number] [id number] 091400 20 Syringe Medical (10430) Systems Inc Bag Microtek 1 2001S 216592 36186 585729 5 Decanter Medical Inc. () Medline Medline 1 [id number] 126673 99877 024484 5 Cath Pack ([id number]) ACIST Hand Acist 1 47741 005776 106934 995864 5 Control Medical (53858) Systems Inc ACIST Acist 1 68111 891898 323234 651524 5 Manifold Medical (71277) Systems Inc DIAGNOSTIC Cardinal 1 [id number] 087847 05060 524136 30 MultipMetroGames 5Fr catheter set (IU2375) Tegaderm 4 3M 1 1626W 782771 210483 126134 5 x 4 (1626W) SHEATH 5FR Terumo 1 [id number] 758833 203132 192766 5 [place] (IUP568) EMERALD Cardinal 1 502-455 235719 284359 481744 5 Guide Wire [facility] (502-455) MULTIPACK Cardinal 1 683110 5 JL 4.0 5Fr Health catheter DIAGNOSTIC Cardinal 1 [id number] 775629 739681 427123 15 AR MOD 5Fr Health Catheter (551932C) DIAGNOSTIC Cardinal 1 [id number] 083686 501359 424889 5 IM 5Fr Health catheter (692752K) GLIDE WIRE Terumo 1 [id number] 583817 905214 291596 5 ANGLE 260cm (VG8407) EXOSEAL 5Fr Cardinal 1 EX500 507995 000048 684252 10 (EX500) Health Signature Audit [place] Stage Time Signature Unsigned Intra-Procedure 03/24/2021 Venu Millard 9:15:21 AM RT(R); Shweta Molina, RN; Yefri Wilkerson MD [facility] [address] [place] [address]
[2021-03-24] MEDS ORDERED: BICALUTAMIDE50 MG PO (07:46)
[2021-03-24] MEDS ORDERED: PROTONIX40 MG PO (07:48)
[2021-03-24] MEDS ORDERED: METOLAZONE5 MG PO (07:48)
[2021-03-24] MEDS ORDERED: CLARITIN 10 MG10 MG PO (07:48)
[2021-03-24] MEDS ORDERED: ULTRAM50 MG PO (07:49)
[2021-03-24 08:03] VITALS: BP 154/69; Ht 185.4 cm; Wt 120.2 kg
[2021-03-24 08:05] LABS: BASOPHILS 0.9 % (0-2); EOSINOPHILS 6.4 % (0-7); HEMATOCRIT 30.7 % (42.0-54.0); HEMOGLOBIN 10.5 g/dL (13.5-17.5); LYMPHOCYTES 19.4 % (15-50); MCH 31.1 pg (26.0-34.0); MCHC 34.1 g/dL (31.0-37.0); MCV 91.1 fL (80.0-100.0); MEAN PLATELET VOLUME 6.8 fL (7.4-10.4); MONOCYTES 8.6 % (2-11); NEUTROPHILS 64.7 % (40-80); PLATELET COUNT 192 10x3/uL (130-400); RBC 3.36 10x6/uL (4.20-6.10); RDW 13.6 % (11.5-14.5); WBC 6.5 10x3/uL (4.8-10.8)
[2021-03-24 08:21] LABS: ANION GAP 12.1 mmol/L (8-16); CALCIUM 9.3 mg/dL (8.5-10.1); CARBON DIOXIDE 29.2 mmol/L (21.0-32.0); CHOL - HDL RATIO 3.5 ratio (2.3-4.9); CREATININE - SERUM 2.7 mg/dL (0.6-1.3); LDL-HDL RATIO 1.5 ratio (1.5-3.5); POTASSIUM - SERUM 4.3 mmol/L (3.5-5.1)
--- NOTE | 2021-03-24 09:25 | NUR ---
PT REC'D TO CATH RECOVERY ROOM 8 VIA STRETCHER. MONITORS ESTAB. SON AT BS. SEE PRICE CLERK FLOWSHEET. ALARMS ON AND C/L IN REACH.
--- NOTE | 2021-03-24 09:40 | NUR ---
R GROIN EXOSEAL SITE SOFT, NO S/S BLEEDING OR HEMATOMA. R LEG/FOOT WARM. PULSES DOPPLERED. VSS. PT DENIES PAIN OR NEEDS. ALARMS ON AND C/L IN REACH.
[2021-03-24] MEDS ORDERED: RANEXA500 MG PO (10:14)
--- NOTE | 2021-03-24 10:15 | NUR ---
DR. CARTER IN TO SEE PT, UPDATED HIM AND HIS SON. R GROIN SITE SOFT, NO S/S BLEEDING OR HEMATOMA. PULSES WEAK PALP, DOPPLERED. VSS.
--- NOTE | 2021-03-24 10:35 | NUR ---
PT VOIDED 200CC DARK YELLOW URINE IN URINAL. R GROIN SITE SOFT, NO S/S BLEEDING OR HEMATOMA. HOB ELEVATED. SANDWICH TRAY AND SPRITE PROVIDED. SON AT BS ASSISTING PT. ALARMS ON AND C/L IN REACH.
--- NOTE | 2021-03-24 10:50 | NUR ---
PT TOLERATED DIET. VSS. PT AND HIS SON EDUCATED ON NEW MEDICATION RANEXA AND QUESTIONS ANSWERED RE: CATH TEST RESULTS. R GROIN SITE SOFT, NO S/S BLEEDING OR HEMATOMA. PULSES WEAK PALP. PT DENIES PAIN OR NEEDS.
--- NOTE | 2021-03-24 11:15 | NUR ---
R GROIN SITE SOFT, NO S/S BLEEDING OR HEMATOMA. R LEG/FOOT WARM WITH WEAK PALP PULSES - EASILY DOPPLERED. VSS.
--- NOTE | 2021-03-24 11:23 | NUR ---
ALL DISCHARGE INSTRUCTIONS REVIEWED WITH PT AND HIS SON, INCLUDING RESTRICTIONS, MEDS (RANEXA EDUCATION MATERIAL PROVIDED) AND F/U APPT - BOTH VERBALIZE UNDERSTANDING. PIV D/C'D INTACT, DSG APPLIED. PT ALLOWED UP TO GET DRESSED AND GO TO BR INDEPENDENTLY.
--- NOTE | 2021-03-24 11:30 | NUR ---
PT D/C'D VIA WC TO PRIVATE VEHICLE WITH ALL PAPERWORK AND BELONGINGS.
== END 2021-03-24 11:30 | disposition home or self-care (01) ==
LOC: D.CATH 06:46
PROVIDERS: ATTEND Internal Medicine Cardiovascular Disease
DX: I25.110 Atherosclerotic heart disease of native coronary artery with unstable angina pectoris (principal); R94.39 Abnormal result of other cardiovascular function study